=== PATIENT | female | born 1950 | race Caucasian/White ===

== ENCOUNTER 2017-09-03 17:15 | Inpatient (IN) | payer SELFPAY ==
--- NOTE | 2017-09-03 17:36 | ER Document Report ---
ED Medical Screen (RME) - General Chief Complaint: Weakness Stated Complaint: HEADACHE, DIZZY, BLURRED VISION Time Seen by Provider: 09/03/17 17:31 Notes: RME DISCLOSURE I have seen this patient as part of a Rapid Medical Evaluation and, if applicable, placed any initially appropriate orders. The patient will be seen and fully evaluated, including a full history and physical exam, by a provider ( in Main ED or Fast Track) when a room becomes available. 67-year-old female here with complaints of left-sided weakness that started 2 weeks ago including her arm and her leg. She states she was unable to move the left side however this and it up resolving somewhat on its own. She still has some residual left-sided weakness but is here today because over the past few days, she has had some slurred speech headache dizziness and vision loss. She was sent here by her PCP Dr. Quevedo for further evaluation of stroke. She states that when she covers her left eye, the vision in her right eye is absent in the right half of the visual field. When she covers her right eye, she states that her left eye vision is normal. She denies any prior history of officially diagnosed stroke. TRAVEL OUTSIDE OF THE [place] IN LAST 30 DAYS: No - Related Data Allergies/Adverse Reactions: iodine [Iodine] Allergy (Severe, Verified 04/12/14 21:52) prochlorperazine edisylate [From Compazine] Allergy (Severe, Verified 04/12/14 21:52) Past Medical History - Social History Chew tobacco use (# tins/day): No Frequency of alcohol use: None Drug Abuse: None - Past Medical History Cardiac Medical History: Reports: Hx Hypercholesterolemia, Hx Hypertension Pulmonary Medical History: Reports: Hx Bronchitis, Hx COPD, Hx Pneumonia Denies: Hx Tuberculosis Renal/ Medical History: Reports: Hx Ovarian Cysts. Denies: Hx Peritoneal Dialysis Psychiatric Medical History: Reports: Hx Anxiety Past Surgical History: Reports: Hx Appendectomy, Hx Hysterectomy - 1986 [facility], Hx Orthopedic Surgery - neck surgery. Denies: Hx Pacemaker - Immunizations Immunizations up to date: Yes Hx Diphtheria, Pertussis, Tetanus Vaccination: Yes Physical Exam - Vital signs Vitals: Temp Pulse Resp BP Pulse Ox 97.9 F 80 16 152/79 H 97 09/03/17 17:24 09/03/17 17:24 09/03/17 17:24 09/03/17 17:24 09/03/17 17:24 Course - Vital Signs Vital signs: Temp Pulse Resp BP Pulse Ox 97.9 F 80 16 152/79 H 97 09/03/17 17:24 09/03/17 17:24 09/03/17 17:24 09/03/17 17:24 09/03/17 17:24
[2017-09-03 18:10] LABS: ABSOLUTE BASOPHILS # (AUTO) 0.1 10^3/uL (0.0-0.2); ABSOLUTE EOSINOPHILS # (AUTO) 0.2 10^3/uL (0.0-0.6); ABSOLUTE LYMPHOCYTES (AUTO) 2.3 10^3/uL (0.5-4.7); ABSOLUTE MONOCYTES (AUTO) 0.8 10^3/uL (0.1-1.4); BASOPHILS % (AUTO) 1.1 % (0-2); EOSINOPHILS % (AUTO) 2.5 % (0-6); HEMATOCRIT 42.4 % (36.0-47.0); HEMOGLOBIN 14.2 g/dL (12.0-15.5); LYMPHOCYTES % (AUTO) 24.7 % (13-45); MEAN CORPUSCULAR HEMOGLOBIN 30.6 pg (27.0-33.4); MEAN CORPUSCULAR HGB CONC 33.6 g/dL (32.0-36.0); MEAN CORPUSCULAR VOLUME 91 fl (80-97); MONOCYTES % (AUTO) 8.6 % (3-13); PLATELET COUNT 212 10^3/uL (150-450); RED BLOOD COUNT 4.65 10^6/uL (3.72-5.28); RED CELL DISTRIBUTION WIDTH 14.5 % (11.5-14.0); SEGMENTED NEUTROPHILS % (AUTO) 63.1 % (42-78); TOTAL CELLS COUNTED % (AUTO) 100 %; WHITE BLOOD COUNT 9.5 10^3/uL (4.0-10.5)
--- NOTE | 2017-09-03 18:13 | RADIOLOGY REPORT (SQ) ---
EXAM DESCRIPTION: CT HEAD WITHOUT COMPLETED DATE/TIME: 09/03/2017 5:51 pm REASON FOR STUDY: visual field cuts, slurred speech, L sided weakness COMPARISON: 06/07/2015 TECHNIQUE: Axial images acquired through the brain without intravenous contrast. Images reviewed wi th bone, brain and subdural windows. Additional sagittal and coronal reconstructions were generated. Images stored on PACS. All CT scanners at this facility use dose modulation, iterative reconstruction, and/or weight based d osing when appropriate to reduce radiation dose to as low as reasonably achievable (ALARA). [facility]: Dose Right [facility]: CareDose [facility]: Dose Right [facility]: Teradose 4D [facility]: Smart VytronUS RADIATION DOSE: CT Rad equipment meets quality standard of care and radiation dose reduction techniq ues were employed. CTDIvol: 53.2 mGy. DLP: 1017 mGy-cm. mGy. LIMITATIONS: None. FINDINGS: VENTRICLES: Normal size and contour. CEREBRUM: No masses. No hemorrhage. No midline shift. No evidence for acute infarction. Areas of l ow density in the white matter most likely chronic small vessel ischemic changes. CEREBELLUM: No masses. No hemorrhage. No alteration of density. No evidence for acute infarction. EXTRAAXIAL SPACES: No fluid collections. No masses. ORBITS AND GLOBE: No intra- or extraconal masses. Normal contour of globe without masses. CALVARIUM: No fracture. PARANASAL SINUSES: No fluid or mucosal thickening. SOFT TISSUES: No mass or hematoma. OTHER: No other significant finding. IMPRESSION: CHRONIC MICROVASCULAR ISCHEMIA. NO ACUTE IMAGING FINDINGS IN THE BRAIN. EVIDENCE OF ACUTE STROKE: NO. COMMENT: Quality ID # [id number]: Final reports with documentation of one or more dose reduction techniques (e.g., Automated exposure control, adjustment of the mA and/or kV according to patient size, use of iterative reconstruction technique) TECHNICAL DOCUMENTATION: JOB ID: [id number] [employer]- All Rights Reserved Reading location - IP/workstation name: [email or web address]
--- NOTE | 2017-09-03 18:15 | RADIOLOGY REPORT (SQ) ---
EXAM DESCRIPTION: CHEST SINGLE VIEW COMPLETED DATE/TIME: 09/03/2017 5:43 pm REASON FOR STUDY: stroke COMPARISON: 06/07/2015 EXAM PARAMETERS: NUMBER OF VIEWS: One view. TECHNIQUE: Single frontal radiographic view of the chest acquired. RADIATION DOSE: NA LIMITATIONS: None. FINDINGS: LUNGS AND PLEURA: The lungs are hyperexpanded with flattening of the diaphragms. There is no infiltrate or effusion. There is no mass. MEDIASTINUM AND HILAR STRUCTURES: No masses. Contour normal. HEART AND VASCULAR STRUCTURES: Heart normal in size. Normal vasculature. BONES: No acute findings. HARDWARE: None in the chest. OTHER: No other significant finding. IMPRESSION: Chronic lung changes with no acute cardiopulmonary disease. TECHNICAL DOCUMENTATION: JOB ID: [id number] [employer]- All Rights Reserved Reading location - IP/workstation name: [email or web address]
[2017-09-03 18:18] LABS: INTERNATIONAL RATION (INR) 0.93; PROTHROMBIN TIME 12.9 SEC (11.4-15.4)
[2017-09-03 18:19] LABS: PARTIAL THROMBOPLASTIN TIME 36.6 SEC (23.5-35.8)
[2017-09-03 18:27] LABS: ANION GAP 11 (5-19); BLOOD UREA NITROGEN 27 mg/dL (7-20); CARBON DIOXIDE 26 mmol/L (22-30); CHLORIDE 106 mmol/L (98-107); GLUCOSE 96 mg/dL (75-110); POTASSIUM 4.7 mmol/L (3.6-5.0); SODIUM 142.9 mmol/L (137-145)
--- NOTE | 2017-09-03 18:35 | ER Document Report ---
ED General - General Chief Complaint: Weakness Stated Complaint: HEADACHE, DIZZY, BLURRED VISION Time Seen by Provider: 09/03/17 17:31 Notes: 67-year-old female. History of hypertension. History of CVA affecting the left side. Over the last several days to last several weeks patient has been having blurred vision with blind spot in the right eye, headache, hypertension and left-sided weakness and pain. Decided to finally come in and get it checked out because a friend thought she was having slurred speech. Patient states that she knows her blood pressure is high and her headache has been hurting worse recently. Review of stroke in the past left her with left-sided weakness of the upper lower extremity TRAVEL OUTSIDE OF THE [place] IN LAST 30 DAYS: No - Related Data Allergies/Adverse Reactions: iodine [Iodine] Allergy (Severe, Verified 04/12/14 21:52) prochlorperazine edisylate [From Compazine] Allergy (Severe, Verified 04/12/14 21:52) Past Medical History - General Information source: Patient - Social History Smoking Status: Never Smoker Chew tobacco use (# tins/day): No Frequency of alcohol use: None Drug Abuse: None Lives with: Alone Family History: Reviewed & Not Pertinent Patient has suicidal ideation: No Patient has homicidal ideation: No - Past Medical History Cardiac Medical History: Reports: Hx Hypercholesterolemia, Hx Hypertension Pulmonary Medical History: Reports: Hx Bronchitis, Hx COPD, Hx Pneumonia Denies: Hx Tuberculosis Renal/ Medical History: Reports: Hx Ovarian Cysts. Denies: Hx Peritoneal Dialysis Psychiatric Medical History: Reports: Hx Anxiety Past Surgical History: Reports: Hx Appendectomy, Hx Hysterectomy - 1986 [facility], Hx Orthopedic Surgery - neck surgery. Denies: Hx Pacemaker - Immunizations Immunizations up to date: Yes Hx Diphtheria, Pertussis, Tetanus Vaccination: Yes Review of Systems - Review of Systems Constitutional: No symptoms reported EENT: No symptoms reported, Blurred vision. denies: Ear pain, Difficulty swallowing Cardiovascular: No symptoms reported Respiratory: No symptoms reported Gastrointestinal: No symptoms reported Genitourinary: No symptoms reported Female Genitourinary: No symptoms reported Musculoskeletal: No symptoms reported, Muscle pain Skin: No symptoms reported Hematologic/Lymphatic: No symptoms reported Neurological/Psychological: See HPI, Other - Blurred vision, blind spot right eye, Physical Exam - Vital signs Vitals: Temp Pulse Resp BP Pulse Ox 97.9 F 80 16 152/79 H 97 09/03/17 17:24 09/03/17 17:24 09/03/17 17:24 09/03/17 17:24 09/03/17 17:24 Interpretation: Normal - General General appearance: Appears well, Alert - HEENT Head: Normocephalic, Atraumatic Eyes: Normal Pupils: PERRL - Respiratory Respiratory status: No respiratory distress Chest status: Nontender Breath sounds: Normal Chest palpation: Normal - Cardiovascular Rhythm: Regular Heart sounds: Normal auscultation Murmur: No - Abdominal Inspection: Normal Distension: No distension Bowel sounds: Normal Tenderness: Nontender Organomegaly: No organomegaly - Back Back: Normal, Nontender - Extremities General upper extremity: Normal inspection, Nontender, Normal color, Normal ROM , Normal temperature General lower extremity: Normal inspection, Nontender, Normal color, Normal ROM , Normal temperature, Normal weight bearing. No: Fern's sign - Neurological Neuro grossly intact: Yes Cognition: Normal Orientation: AAOx4 Holland Coma Scale Eye Opening: Spontaneous Olvin Coma Scale Verbal: Oriented Holland Coma Scale Motor: Obeys Commands Olvin Coma Scale Total: 15 Speech: Normal Motor strength normal: RUE, RLE. No: LUE, LLE Sensory: Normal Notes: Mild decreased strength of the left upper and left lower extremity. - Psychological Associated symptoms: Normal affect, Normal mood - Skin Skin Temperature: Warm Skin Moisture: Dry Skin Color: Normal Course - Re-evaluation Re-evalutation: 09/03/17 18:36 CT head and labs unremarkable. Patient with hypertension. Will order MRI but more likely this is all old findings. Ultrasound of lower extremities well to look for DVT based on her previous history of DVT several years ago. 09/03/17 18:46 CT head unremarkable. Chest x-ray unremarkable. Given her blood pressure medication at this time. Have ordered an MRI and ultrasound of the lower extremity to rule out DVT and worsening symptoms however patient needs to be admitted for TIA and further evaluation especially in the setting of this uncontrolled hypertension. Patient is taking care of by Dr. Quevedo. Dr. Phelan is covering for Dr. Quevedo this week and. Consulted Dr. Phelan who will admit to obs telemetry at this time. 09/03/17 18:47 09/03/17 18:47 Laboratory 09/03/17 09/03/17 09/03/17 18:00 18:00 18:00 WBC 9.5 RBC 4.65 Hgb 14.2 Hct 42.4 MCV 91 MCH 30.6 MCHC 33.6 RDW 14.5 H Plt Count 212 Seg Neutrophils % 63.1 Lymphocytes % 24.7 Monocytes % 8.6 Eosinophils % 2.5 Basophils % 1.1 Absolute Neutrophils 6.0 Absolute Lymphocytes 2.3 Absolute Monocytes 0.8 Absolute Eosinophils 0.2 Absolute Basophils 0.1 PT INR APTT Sodium 142.9 Potassium 4.7 Chloride 106 Carbon Dioxide 26 Anion Gap 11 BUN 27 H Creatinine 1.29 H Est GFR ( Amer) 50 L Est GFR (Non-Af Amer) 41 L Glucose 96 Calcium 10.0 Troponin I 0.013 09/03/17 18:00 WBC RBC Hgb Hct MCV MCH MCHC RDW Plt Count Seg Neutrophils % Lymphocytes % Monocytes % Eosinophils % Basophils % Absolute Neutrophils Absolute Lymphocytes Absolute Monocytes Absolute Eosinophils Absolute Basophils PT 12.9 INR 0.93 APTT 36.6 H Sodium Potassium Chloride Carbon Dioxide Anion Gap BUN Creatinine Est GFR ( Amer) Est GFR (Non-Af Amer) Glucose Calcium Troponin I Head CT 09/03/17 17:32 IMPRESSION: CHRONIC MICROVASCULAR ISCHEMIA. NO ACUTE IMAGING FINDINGS IN THE BRAIN. EVIDENCE OF ACUTE STROKE: NO. Chest X-Ray 09/03/17 17:34 IMPRESSION: Chronic lung changes with no acute cardiopulmonary disease. - Vital Signs Vital signs: Temp Pulse Resp BP Pulse Ox 97.9 F 80 16 152/79 H 97 09/03/17 17:24 09/03/17 17:50 09/03/17 17:50 09/03/17 17:50 09/03/17 17:50 - Laboratory Result Diagrams: 09/03/17 18:00 09/03/17 18:00 Laboratory results interpreted by me: 09/03/17 09/03/17 09/03/17 18:00 18:00 18:00 RDW 14.5 H APTT 36.6 H BUN 27 H Creatinine 1.29 H Est GFR ( Amer) 50 L Est GFR (Non-Af Amer) 41 L - EKG Interpretation by Me Additional EKG results interpreted by me: 09/03/17 18:37 EKG with wandering pacemaker and supraventricular bigeminy LVH with no evidence of ST segment elevation or depression. No significant T-wave abnormalities. Discharge - Discharge Clinical Impression: Hypertensive urgency TIA (transient ischemic attack) Qualifiers: Transient cerebral ischemia type: amaurosis fugax Qualified Code(s): G45.3 - Amaurosis fugax Condition: Good Disposition: ADMITTED OBSERVATION Admitting Provider: [facility] Admitted: Telemetry
[2017-09-03] MEDS ORDERED: LISINOPRIL 10 MG TABLET PO ONE (18:41)
[2017-09-03] MEDS ORDERED: AMLODIPINE BESYLATE 10 MG TABLET PO ONE (18:42)
[2017-09-03] MEDS ORDERED: OXYCODONE-ACETAMINOPHEN 5-325 MG TABLET PO ONE (19:12)
[2017-09-03] MEDS ORDERED: FAMOTIDINE 20 MG TABLET PO ONE (19:13)
[2017-09-03] MEDS ORDERED: ASPIRIN 325 MG TABLET PO ONE (19:13)
[2017-09-03 19:51] LABS: APPEARANCE,URINE CLEAR; BILIRUBIN,URINE NEGATIVE (NEGATIVE); COLOR,URINE YELLOW; GLUCOSE, URINE NEGATIVE (NEGATIVE); KETONES,URINE NEGATIVE (NEGATIVE); LEUKOCYTE ESTERASE,URINE NEGATIVE (NEGATIVE); NITRITE,URINE NEGATIVE (NEGATIVE); PROTEIN,URINE 30 mg/dL (NEGATIVE); URINE SPECIFIC GRAVITY 1.015; UROBILINOGEN,URINE NEGATIVE mg/dL (<2.0)
--- NOTE | 2017-09-03 21:04 | EKG REPORT ---
SEVERITY:- ABNORMAL ECG - SINUS RHYTHM WITH ATRIAL BIGEMINI SUPRAVENTRICULAR BIGEMINY LVH WITH SECONDARY REPOLARIZATION ABNORMALITY BORDERLINE PROLONGED QT INTERVAL : Confirmed by: Iris Epstein 03-Sep-2017 21:04:08
[2017-09-03] MEDS ORDERED: CLONIDINE HCL 0.1 MG TABLET PO ONE (21:38)
--- NOTE | 2017-09-03 22:05 | RADIOLOGY REPORT (SQ) ---
EXAM DESCRIPTION: MRI HEAD WITHOUT COMPLETED DATE/TIME: 09/03/2017 8:44 pm REASON FOR STUDY: headache and vision loss COMPARISON: Earlier head CT TECHNIQUE: Multiplanar imaging includes non-contrasted T1, T2, FLAIR, and Diffusion with ADC map seq uences. Images stored on PACS. LIMITATIONS: None. FINDINGS: ANATOMY: No anomalies. Normal vascular flow voids. Pituitary fossa normal. CSF SPACES: Normal in size and contour. No hemorrhage. CEREBRUM: Scattered high-signal intensity lesions scattered throughout the white matter on FLAIR imag ing with distribution suggesting chronic micro-vascular ischemic change. Sulci and gyri normal in si ze and contour. No evidence of hemorrhage, mass or extraaxial fluid collection. POSTERIOR FOSSA: No signal alteration. No hemorrhage. No edema, masses or mass effect. Internal emory tory canals, cerebello-pontine angles, mastoids normal. DIFFUSION: Positive for acute or sub-acute infarction with multiple small foci including the central maria [place], both posterior occipital cortices, and the posterior left temporal-occipital junction. ORBITS: No masses. Globes normal. PARANASAL SINUSES: No fluid levels. Mucosa normal. OTHER: No other significant finding. IMPRESSION: Positive for acute or sub-acute infarction with multiple small foci including the centra l maria [place] carmen, both posterior occipital cortices, and the posterior left temporal-occipital junction. EVIDENCE OF ACUTE STROKE: Yes bilateral posterior circulation COMMENT: These results were called to Dr. Ramirez in the emergency room at 2159 hours. Results shanell landry confirmed and read back. TECHNICAL DOCUMENTATION: JOB ID: [id number] [employer]- All Rights Reserved Reading location - IP/workstation name: [email or web address]
[2017-09-03] MEDS ORDERED: HYDRALAZINE HCL 50 MG TABLET PO ONE (23:15)
[2017-09-04] MEDS ORDERED: VALSARTAN 160 MG TABLET PO ONE (00:15)
[2017-09-04 05:30] LABS: ABSOLUTE BASOPHILS # (AUTO) 0.1 10^3/uL (0.0-0.2); ABSOLUTE EOSINOPHILS # (AUTO) 0.2 10^3/uL (0.0-0.6); ABSOLUTE LYMPHOCYTES (AUTO) 2.1 10^3/uL (0.5-4.7); ABSOLUTE MONOCYTES (AUTO) 0.6 10^3/uL (0.1-1.4); ABSOLUTE NEUT (AUTO) 4.8 10^3/uL (1.7-8.2); EOSINOPHILS % (AUTO) 2.4 % (0-6); HEMATOCRIT 38.9 % (36.0-47.0); HEMOGLOBIN 13.2 g/dL (12.0-15.5); LYMPHOCYTES % (AUTO) 27.2 % (13-45); MEAN CORPUSCULAR HEMOGLOBIN 30.6 pg (27.0-33.4); MEAN CORPUSCULAR HGB CONC 33.8 g/dL (32.0-36.0); MEAN CORPUSCULAR VOLUME 90 fl (80-97); PLATELET COUNT 148 10^3/uL (150-450); RED BLOOD COUNT 4.31 10^6/uL (3.72-5.28); RED CELL DISTRIBUTION WIDTH 14.9 % (11.5-14.0); SEGMENTED NEUTROPHILS % (AUTO) 61.4 % (42-78); TOTAL CELLS COUNTED % (AUTO) 100 %; WHITE BLOOD COUNT 7.8 10^3/uL (4.0-10.5)
[2017-09-04] MEDS: LANSOPRAZOLE 30 MG TAB.RAP.DR PO SCH (05:50)
[2017-09-04 05:53] LABS: ANION GAP 9 (5-19); BLOOD UREA NITROGEN 28 mg/dL (7-20); CALCIUM 9.4 mg/dL (8.4-10.2); CARBON DIOXIDE 22 mmol/L (22-30); CHLORIDE 109 mmol/L (98-107); CHOLESTEROL 188.43 mg/dL (0-200); GLUCOSE 109 mg/dL (75-110); SODIUM 140.3 mmol/L (137-145); TRIGLYCERIDES 123 mg/dL (<150)
[2017-09-04] MEDS ORDERED: HYDRALAZINE HCL 50 MG TABLET PO SCH (06:00)
[2017-09-04 06:04] LABS: DIRECT LDL 108 mg/dL (<100)
[2017-09-04 06:11] LABS: POTASSIUM 3.4 mmol/L (3.6-5.0)
[2017-09-04] MEDS ORDERED: (PENDING PHARMACY ID) (Butalbital/Aspirin/Caffeine [Fiorinal 50-325-40 Mg Capsule] 1 CAP) PO PRN (09:56)
[2017-09-04] MEDS: ASPIRIN 81 MG TABLET, ENT COATED PO SCH (10:00)
[2017-09-04] MEDS: ENOXAPARIN SODIUM INJ 40 MG/0.4 ML DISP.SYRIN SUBCUT SCH (10:00)
--- NOTE | 2017-09-04 11:36 | PDOC H&P ---
History of Present Illness Admission Date/PCP: 09/03/17 23:13 Patient complains of: HEADACHE, DIZZY, BLURRED VISION History of Present Illness: PRISCILA MINOR is a 67 year old female patient of Dr Quevedo who presented to the ED with above listed complaints. Very poor historian and further discussion with her pharmacist poor compliance with anti hypertensive medication. she noted worsening symptoms for couple of weeks and friend noted slurred speech that prompted her coming to the ED for further evaluation. Initial assessment did revealed significantly elevated blood pressure. Her initial CT scan of head was unrevealing of acute process but her MRI brain suggested acute or subacute bilateral posterior circulation infarctions. She reported dizziness, vertigo, unsteady gait, blurred vision, blind spot right eye, nausea but no vomiting, and chest discomfort with breathing. She admitted to continue cigarette smoking , about 1/2 stick per day! She denied any fever , chills, abdominal pain, diarrhea, constipation, flank pain, dysuria, or hematuria. She denied alcohol or illicit drug usage. Morbidities include prior stroke with left paresis, Hypercholesterolemia, Hypertension, COPD, and Anxiety. Past Medical History Cardiac Medical History: Reports: Hyperlipidema, Hypertension Pulmonary Medical History: Reports: Bronchitis, Chronic Obstructive Pulmonary Disease (COPD), Pneumonia Denies: Tuberculosis Psychiatric Medical History: Denies: Depression Past Surgical History Past Surgical History: Reports: Appendectomy, Hysterectomy - [address] [facility], Orthopedic Surgery - neck surgery Denies: Pacemaker Social History Lives with: Alone Smoking Status: Current Every Day Smoker Cigarettes Packs Per Day: 1 Number of Years Smokin Last Time Smoked: yesterday Frequency of Alcohol Use: None Hx Recreational Drug Use: No Drugs: None Hx Prescription Drug Abuse: No - Advance Directive Resuscitation Status: Full Code Family History Family History: Reviewed & Not Pertinent Parental Family History Reviewed: Yes Children Family History Reviewed: Yes Sibling(s) Family History Reviewed.: Yes Medication/Allergy Home Medications: Butalbital/Aspirin/Caffeine [Fiorinal 50-325-40 mg Capsule] 1 cap PO DAILYP PRN 09/03/17 Allergies/Adverse Reactions: iodine [Iodine] Allergy (Severe, Verified 04/12/14 21:52) prochlorperazine edisylate [From Compazine] Allergy (Severe, Verified 04/12/14 21:52) Review of Systems Constitutional: PRESENT: headache(s) Eyes: PRESENT: visual disturbances Ears: ABSENT: hearing changes Nose, Mouth, and Throat: PRESENT: headache(s), vertigo Cardiovascular: ABSENT: chest pain, dyspnea on exertion, edema, orthropnea, palpitations Respiratory: ABSENT: cough, hemoptysis Gastrointestinal: PRESENT: nausea. ABSENT: as per HPI, abdominal pain, bloating , coffee ground emesis, constipation, diarrhea, dysphagia, heartburn, hematemesis, hematochezia, melena, vomiting, other Genitourinary: ABSENT: dysuria, hematuria Musculoskeletal: PRESENT: muscle weakness - discomfort and intolerance of pain in left leg due to MEDARDO, weakness in left legleft side related to prior stroke Integumentary: ABSENT: rash, wounds Neurological: PRESENT: abnormal gait - related to prior stroke, abnormal speech , dizziness, vertigo, weakness - related to prior stroke. ABSENT: as per HPI, abnormal movements, confusion, convulsions, focal weakness, frequent falls, lack of coordination, memory loss, numbness, paresthesias, restless legs, syncope, tingling, tremor(s), other Psychiatric: ABSENT: anxiety, depression, homidical ideation, suicidal ideation Endocrine: ABSENT: cold intolerance, heat intolerance, polydipsia, polyuria Hematologic/Lymphatic: PRESENT: as per HPI Allergic/Immunologic: ABSENT: seasonal rhinorrhea Physical Exam Vital Signs: Temp Pulse Resp BP Pulse Ox 97.4 F 55 L 20 136/65 H 99 09/04/17 07:46 09/04/17 07:46 09/04/17 07:46 09/04/17 07:46 09/04/17 07:46 Intake & Output 09/03/17 09/04/17 09/05/17 06:59 06:59 06:59 Intake Total 250 Output Total 0 Balance 250 Weight 46 kg General appearance: PRESENT: no acute distress, well-developed, well-nourished Head exam: PRESENT: atraumatic, normocephalic Eye exam: PRESENT: conjunctiva pink, EOMI, PERRLA. ABSENT: scleral icterus Ear exam: PRESENT: normal external ear exam Mouth exam: PRESENT: moist, tongue midline Teeth exam: PRESENT: edentulous - with upper denture in use Throat exam: ABSENT: post pharyngeal erythema, tonsillar erythema, tonsillar exudate, tonsillogmegaly, other Neck exam: PRESENT: full ROM. ABSENT: carotid bruit, JVD, lymphadenopathy, thyromegaly Respiratory exam: PRESENT: clear to auscultation carmita Cardiovascular exam: PRESENT: RRR. ABSENT: diastolic murmur, rubs, systolic murmur Pulses: PRESENT: normal dorsalis pedis pul, +2 pedal pulses bilateral Vascular exam: PRESENT: normal capillary refill. ABSENT: pallor GI/Abdominal exam: PRESENT: normal bowel sounds, soft. ABSENT: distended, guarding, mass, organolmegaly, rebound, tenderness Rectal exam: PRESENT: deferred Extremities exam: ABSENT: pedal edema Musculoskeletal exam: PRESENT: normal inspection Neurological exam: PRESENT: alert, awake, oriented to person, oriented to place , oriented to time, oriented to situation, abnormal gait - ambulate with straight cane assistance, CN II-XII grossly intact. ABSENT: motor sensory deficit Psychiatric exam: PRESENT: appropriate affect, normal mood. ABSENT: homicidal ideation, suicidal ideation Skin exam: PRESENT: dry, intact, warm, other - seborrhea lesion on back. ABSENT : cyanosis, rash Results Laboratory Results: 09/04/17 04:53 09/04/17 04:53 09/04/17 09/04/17 04:53 04:53 WBC 7.8 RBC 4.31 Hgb 13.2 Hct 38.9 MCV 90 MCH 30.6 MCHC 33.8 RDW 14.9 H Plt Count 148 L Seg Neutrophils % 61.4 Lymphocytes % 27.2 Monocytes % 8.0 Eosinophils % 2.4 Basophils % 1.0 Absolute Neutrophils 4.8 Absolute Lymphocytes 2.1 Absolute Monocytes 0.6 Absolute Eosinophils 0.2 Absolute Basophils 0.1 Sodium 140.3 Potassium 3.4 L D Chloride 109 H Carbon Dioxide 22 Anion Gap 9 BUN 28 H Creatinine 1.14 Est GFR ( Amer) 58 L Est GFR (Non-Af Amer) 48 L Glucose 109 Calcium 9.4 Triglycerides 123 Cholesterol 188.43 LDL Cholesterol Direct 108 H VLDL Cholesterol 25.0 HDL Cholesterol 51 Impressions: Head CT 09/03/17 17:32 IMPRESSION: CHRONIC MICROVASCULAR ISCHEMIA. NO ACUTE IMAGING FINDINGS IN THE BRAIN. EVIDENCE OF ACUTE STROKE: NO. Chest X-Ray 09/03/17 17:34 IMPRESSION: Chronic lung changes with no acute cardiopulmonary disease. Head MRI 09/03/17 18:20 IMPRESSION: Positive for acute or sub-acute infarction with multiple small foci including the central maria [place], both posterior occipital cortices, and the posterior left temporal-occipital junction. EVIDENCE OF ACUTE STROKE: Yes bilateral posterior circulation Assessment & Plan - Diagnosis (1) Acute arterial ischemic stroke, multifocal, posterior circulation Qualifiers: Laterality: unspecified laterality Qualified Code(s): I63.539 - Cerebral infarction due to unspecified occlusion or stenosis of unspecified posterior cerebral artery Is this a current diagnosis for this admission?: Yes Plan: See covering attending physician orders. (2) Malignant hypertensive urgency Is this a current diagnosis for this admission?: Yes Plan: See covering attending physician orders. (3) Tobacco abuse Is this a current diagnosis for this admission?: Yes Plan: See covering attending physician orders. (4) PVD (peripheral vascular disease) with claudication Is this a current diagnosis for this admission?: Yes Plan: See covering attending physician orders. - Time Time Spent: Greater than 70 Minutes Smoking Cessation Education: 3 to 10 minutes Medications reviewed and adjusted accordingly: Yes Anticipated discharge: Home with Homehealth Within: Other - Inpatient Certification Based on my medical assessment, after consideration of the patient's comorbidities, presenting symptoms, or acuity I expect that the services needed warrant INPATIENT care.: Yes I certify that my determination is in accordance with my understanding of Medicare's requirements for reasonable and necessary INPATIENT services [42 CFR 412.3e].: Yes Medical Necessity: Need Close Monitoring Due to Risk of Patient Decompensation, Need For Continuous Telemetry Monitoring, Risk of Complication if Not Cared For in Hospital Post Hospital Care: D/C Composition Teacher Documentation - Plan Summary Plan Summary: See covering attending physician orders.
[2017-09-04] MEDS: HYDRALAZINE HCL 50 MG TABLET PO PRN (14:19)
[2017-09-04] MEDS: BUTALB/ACETAMINOPHEN/CAFFEINE 1 TAB EACH PO PRN (14:19)
[2017-09-04] MEDS: ATORVASTATIN CALCIUM 40 MG TABLET PO SCH (21:54)
[2017-09-04] MEDS: VALSARTAN 160 MG TABLET PO SCH (21:54)
[2017-09-05] MEDS: HYDRALAZINE HCL 50 MG TABLET PO PRN ×2 (01:55→09:18)
[2017-09-05] MEDS: LANSOPRAZOLE 30 MG TAB.RAP.DR PO SCH (07:17)
[2017-09-05] MEDS: ASPIRIN 81 MG TABLET, ENT COATED PO SCH (09:17)
[2017-09-05] MEDS: ENOXAPARIN SODIUM INJ 40 MG/0.4 ML DISP.SYRIN SUBCUT SCH (09:18)
--- NOTE | 2017-09-05 09:24 | PDOC PROGRESS REPORT ---
Subjective Progress Note for:: 09/05/17 Subjective:: She denied any chest pain or difficulty with breathing. No abdominal pain, nausea or vomiting. She expressed concern about headache. Noted that patient has three different PCP and taking two benzodiazepines and [place] from different three pharmacies. no fever or chills. No dizziness or vertigo in supine position. Reason For Visit: TIA Physical Exam Vital Signs: Temp Pulse Resp BP Pulse Ox 98.2 F 63 18 168/70 H 98 09/05/17 07:09 09/05/17 07:12 09/05/17 07:12 09/05/17 07:12 09/05/17 07:12 Intake & Output 09/04/17 09/05/17 09/06/17 06:59 06:59 06:59 Intake Total 250 962 Output Total 0 1100 Balance 250 -138 Weight 46 kg 45.7 kg General appearance: PRESENT: no acute distress, well-developed, well-nourished Head exam: PRESENT: atraumatic, normocephalic Eye exam: PRESENT: conjunctiva pink, EOMI, PERRLA. ABSENT: scleral icterus Respiratory exam: PRESENT: clear to auscultation carmita Cardiovascular exam: PRESENT: RRR. ABSENT: diastolic murmur, rubs, systolic murmur Vascular exam: PRESENT: normal capillary refill. ABSENT: pallor GI/Abdominal exam: PRESENT: normal bowel sounds, soft. ABSENT: distended, guarding, mass, organolmegaly, rebound, tenderness Extremities exam: ABSENT: pedal edema Musculoskeletal exam: PRESENT: normal inspection Neurological exam: PRESENT: alert, awake, oriented to person, oriented to place , oriented to time, oriented to situation, CN II-XII grossly intact. ABSENT: motor sensory deficit Psychiatric exam: PRESENT: appropriate affect, normal mood. ABSENT: homicidal ideation, suicidal ideation Skin exam: PRESENT: dry, intact, warm. ABSENT: cyanosis, rash Results Laboratory Results: 09/04/17 04:53 09/04/17 04:53 Impressions: Head CT 09/03/17 17:32 IMPRESSION: CHRONIC MICROVASCULAR ISCHEMIA. NO ACUTE IMAGING FINDINGS IN THE BRAIN. EVIDENCE OF ACUTE STROKE: NO. Chest X-Ray 09/03/17 17:34 IMPRESSION: Chronic lung changes with no acute cardiopulmonary disease. Head MRI 09/03/17 18:20 IMPRESSION: Positive for acute or sub-acute infarction with multiple small foci including the central maria [place]men, both posterior occipital cortices, and the posterior left temporal-occipital junction. EVIDENCE OF ACUTE STROKE: Yes bilateral posterior circulation Assessment & Plan - Diagnosis (1) Acute arterial ischemic stroke, multifocal, posterior circulation Qualifiers: Laterality: unspecified laterality Qualified Code(s): I63.539 - Cerebral infarction due to unspecified occlusion or stenosis of unspecified posterior cerebral artery Is this a current diagnosis for this admission?: Yes (2) Malignant hypertensive urgency Is this a current diagnosis for this admission?: Yes (3) Tobacco abuse Is this a current diagnosis for this admission?: Yes (4) PVD (peripheral vascular disease) with claudication Is this a current diagnosis for this admission?: Yes - Time Time Spent with patient: 25-34 minutes Medications reviewed and adjusted accordingly: Yes Anticipated discharge: Home with Homehealth Within: Other - Inpatient Certification Based on my medical assessment, after consideration of the patient's comorbidities, presenting symptoms, or acuity I expect that the services needed warrant INPATIENT care.: Yes I certify that my determination is in accordance with my understanding of Medicare's requirements for reasonable and necessary INPATIENT services [42 CFR 412.3e].: Yes Medical Necessity: Need Close Monitoring Due to Risk of Patient Decompensation, Need For Continuous Telemetry Monitoring, Risk of Complication if Not Cared For in Hospital Post Hospital Care: D/C 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 D/C MENDS assessment. Obtain PT evaluation. Obtain CBC with diff, BMP, Mag level.
[2017-09-05 10:59] LABS: ABSOLUTE BASOPHILS # (AUTO) 0.1 10^3/uL (0.0-0.2); ABSOLUTE EOSINOPHILS # (AUTO) 0.1 10^3/uL (0.0-0.6); ABSOLUTE LYMPHOCYTES (AUTO) 1.3 10^3/uL (0.5-4.7); ABSOLUTE MONOCYTES (AUTO) 0.5 10^3/uL (0.1-1.4); ABSOLUTE NEUT (AUTO) 6.1 10^3/uL (1.7-8.2); BASOPHILS % (AUTO) 0.6 % (0-2); EOSINOPHILS % (AUTO) 1.2 % (0-6); HEMATOCRIT 42.9 % (36.0-47.0); HEMOGLOBIN 14.1 g/dL (12.0-15.5); LYMPHOCYTES % (AUTO) 16.2 % (13-45); MEAN CORPUSCULAR HEMOGLOBIN 29.5 pg (27.0-33.4); MEAN CORPUSCULAR HGB CONC 32.9 g/dL (32.0-36.0); MEAN CORPUSCULAR VOLUME 90 fl (80-97); MONOCYTES % (AUTO) 6.2 % (3-13); PLATELET COUNT 206 10^3/uL (150-450); RED BLOOD COUNT 4.78 10^6/uL (3.72-5.28); RED CELL DISTRIBUTION WIDTH 14.6 % (11.5-14.0); SEGMENTED NEUTROPHILS % (AUTO) 75.8 % (42-78); TOTAL CELLS COUNTED % (AUTO) 100 %; WHITE BLOOD COUNT 8.1 10^3/uL (4.0-10.5)
[2017-09-05 11:20] LABS: ANION GAP 12 (5-19); BLOOD UREA NITROGEN 27 mg/dL (7-20); CALCIUM 9.5 mg/dL (8.4-10.2); CARBON DIOXIDE 20 mmol/L (22-30); CHLORIDE 111 mmol/L (98-107); GLUCOSE 123 mg/dL (75-110); POTASSIUM 3.5 mmol/L (3.6-5.0)
[2017-09-05] MEDS ORDERED: CLONIDINE HCL 0.1 MG TABLET ONE (12:53)
[2017-09-05] MEDS: BUTALB/ACETAMINOPHEN/CAFFEINE 1 TAB EACH PO PRN (12:55)
[2017-09-05 13:35] LABS: URINE AMPHETAMINES SCREEN NEGATIVE; URINE BENZODIAZEPINES SCREEN NEGATIVE; URINE COCAINE SCREEN NEGATIVE; URINE MARIJUANA (THC) SCREEN NEGATIVE; URINE METHADONE SCREEN NEGATIVE; URINE PHENCYCLIDINE SCREEN NEGATIVE
[2017-09-05 13:39] LABS: URINE BARBITURATES SCREEN UNCONFIRMED POSITIVE
[2017-09-05] MEDS ORDERED: CLONIDINE HCL 0.2 MG TABLET PO ONE (14:00)
[2017-09-05] MEDS: POTASSIUM CHLORIDE 10 MEQ TABLET.SA PO SCH ×2 (16:58→21:17)
[2017-09-05] MEDS: VALSARTAN 160 MG TABLET PO SCH (21:18)
[2017-09-05] MEDS: CLONIDINE HCL 0.2 MG TABLET PO SCH (21:18)
[2017-09-05] MEDS: ATORVASTATIN CALCIUM 40 MG TABLET PO SCH (21:18)
[2017-09-06] MEDS: BUTALB/ACETAMINOPHEN/CAFFEINE 1 TAB EACH PO PRN (01:11)
[2017-09-06] MEDS: LANSOPRAZOLE 30 MG TAB.RAP.DR PO SCH (06:29)
[2017-09-06] MEDS: ASPIRIN 81 MG TABLET, ENT COATED PO SCH (10:58)
[2017-09-06] MEDS: CLOPIDOGREL BISULFATE 75 MG TABLET PO SCH (10:58)
[2017-09-06] MEDS: AMLODIPINE BESYLATE 2.5 MG TABLET PO SCH ×2 (10:58→21:56)
[2017-09-06] MEDS: CLONIDINE HCL 0.2 MG TABLET PO SCH ×2 (10:58→21:56)
[2017-09-06] MEDS: ENOXAPARIN SODIUM INJ 40 MG/0.4 ML DISP.SYRIN SUBCUT SCH (10:59)
--- NOTE | 2017-09-06 11:54 | RADIOLOGY REPORT (SQ) ---
EXAM DESCRIPTION: CAROTID DOPPLER COMPLETED DATE/TIME: 09/06/2017 11:27 am REASON FOR STUDY: TIA COMPARISON: Brain 09/03/2017 CT brain 09/03/2017 TECHNIQUE: Grayscale ultrasound, Doppler velocity and spectra, and color Doppler images acquired of the extra-cranial carotid and vertebral arteries. Images stored on PACS. LIMITATIONS: None. FINDINGS: RIGHT CAROTID CCA Velocities: Within normal limits. Diffuse intimal thickening. ICA Velocities Peak systolic 0.73 m/s. End diastolic 0.19 m/s. Proximal ICA/CCA peak systolic ratio 1.7. Spectra normal. Mixed calcific and noncalcific plaque at the proximal left ICA. LEFT CAROTID CCA Velocities: Within normal limits. Diffuse intimal thickening. ICA Velocities Peak systolic 1.3 m/s. End diastolic 0.25 m/s. Proximal ICA/CCA peak systolic ratio 1.2. Spectra normal. By velocity criteria, 50 to 69% narrowing is present in the left proximal internal c arotid artery. Mixed calcific and noncalcific plaque at the left proximal ICA. VERTEBRAL ARTERIES: Antegrade flow. Normal waveforms. SUBCLAVIAN ARTERIES: Not evaluated OTHER: No other significant finding. IMPRESSION: No flow significant stenosis at the carotid bifurcations. Less than 50% diameter narrowing proximal right ICA. 50 to 69% narrowing proximal left ICA. COMMENT: Quality ID #[id number]: Velocity criteria are extrapolated from the diameter data as defined by t he Society of Radiologists in Ultrasound Consensus Conference. Radiology 2003: 229; 340-346. TECHNICAL DOCUMENTATION: JOB ID: [id number] [employer]- All Rights Reserved Reading location - IP/workstation name: [facility]
[2017-09-06] MEDS: ACETAMINOPHEN 325 MG TABLET PO PRN ×2 (12:12→21:56)
--- NOTE | 2017-09-06 12:52 | PDOC PROGRESS REPORT ---
Subjective Progress Note for:: 09/06/17 Subjective:: Patient was admitted on the weekend due to the acute left-sided strokes and the patient is currently doing much better Patient's visual site is getting improving Patient's denied any dizziness Patient's denied any weakness Patient is a very noncompliance patients was referred to neurology in the past due to the stroke in the past and patient also seen by the vascular surgery at [place] for carotid disease Patient also getting the pain medication control symptoms from different doctors and very extensive discussions with the patient's today myself with the nursing staff about this DrDori stopping in the controlled substance abuse Reason For Visit: TIA Physical Exam Vital Signs: Temp Pulse Resp BP Pulse Ox 97.2 F 58 L 16 139/66 H 99 09/06/17 07:00 09/06/17 07:00 09/06/17 07:00 09/06/17 07:00 09/06/17 07:00 Intake & Output 09/05/17 09/06/17 09/07/17 06:59 06:59 06:59 Intake Total 962 856 Output Total 1100 1150 Balance -138 -294 Weight 45.7 kg 45.5 kg General appearance: PRESENT: no acute distress, well-developed, well-nourished Head exam: PRESENT: atraumatic, normocephalic Eye exam: PRESENT: conjunctiva pink, EOMI, PERRLA. ABSENT: scleral icterus Ear exam: PRESENT: normal external ear exam Mouth exam: PRESENT: moist, tongue midline Neck exam: PRESENT: full ROM. ABSENT: carotid bruit, JVD, lymphadenopathy, thyromegaly Respiratory exam: PRESENT: clear to auscultation carmita Cardiovascular exam: PRESENT: RRR. ABSENT: diastolic murmur, rubs, systolic murmur Pulses: PRESENT: normal dorsalis pedis pul, +2 pedal pulses bilateral Vascular exam: PRESENT: normal capillary refill GI/Abdominal exam: PRESENT: normal bowel sounds, soft. ABSENT: distended, guarding, mass, organolmegaly, rebound, tenderness Rectal exam: PRESENT: deferred Extremities exam: ABSENT: pedal edema Musculoskeletal exam: PRESENT: ambulatory Neurological exam: PRESENT: alert, awake, oriented to person, oriented to place , oriented to time, oriented to situation, CN II-XII grossly intact. ABSENT: motor sensory deficit Psychiatric exam: PRESENT: appropriate affect, normal mood. ABSENT: homicidal ideation, suicidal ideation Skin exam: PRESENT: dry, intact, warm. ABSENT: cyanosis, rash Results Laboratory Results: 09/05/17 10:45 09/05/17 10:45 Impressions: Head CT 09/03/17 17:32 IMPRESSION: CHRONIC MICROVASCULAR ISCHEMIA. NO ACUTE IMAGING FINDINGS IN THE BRAIN. EVIDENCE OF ACUTE STROKE: NO. Chest X-Ray 09/03/17 17:34 IMPRESSION: Chronic lung changes with no acute cardiopulmonary disease. Head MRI 09/03/17 18:20 IMPRESSION: Positive for acute or sub-acute infarction with multiple small foci including the central maria [place]men, both posterior occipital cortices, and the posterior left temporal-occipital junction. EVIDENCE OF ACUTE STROKE: Yes bilateral posterior circulation Carotid Doppler Study 09/06/17 00:00 IMPRESSION: No flow significant stenosis at the carotid bifurcations. Less than 50% diameter narrowing proximal right ICA. 50 to 69% narrowing proximal left ICA. Assessment & Plan - Diagnosis (1) Acute arterial ischemic stroke, multifocal, posterior circulation Qualifiers: Laterality: unspecified laterality Qualified Code(s): I63.539 - Cerebral infarction due to unspecified occlusion or stenosis of unspecified posterior cerebral artery Is this a current diagnosis for this admission?: Yes Plan: Add the Plavix with the 81 mg aspirin patient used to take the Plavix at homeBut very noncompliance and not taking regularly and also increase the statin (2) Carotid stenosis Qualifiers: Laterality: bilateral Qualified Code(s): I65.23 - Occlusion and stenosis of bilateral carotid arteries Is this a current diagnosis for this admission?: Yes Plan: Will increase to maximize dose of the medication and his patient's is to make another appointment to see the surgery will make arrangement for further evaluations (3) Dyslipidemia Is this a current diagnosis for this admission?: Yes Plan: Increase the statin (4) HTN (hypertension) Qualifiers: Hypertension type: essential hypertension Qualified Code(s): I10 - Essential (primary) hypertension Is this a current diagnosis for this admission?: Yes Plan: We added the Norvasc 2.5 mg p.o. twice a day (5) PVD (peripheral vascular disease) with claudication Is this a current diagnosis for this admission?: Yes Plan: Patient seen by vascular surgery at [facility] and patient still continues to smoke (6) Tobacco abuse Is this a current diagnosis for this admission?: Yes Plan: Discussed with the patient about smoking counseling (7) Substance abuse Is this a current diagnosis for this admission?: Yes Plan: Very extensive discussed with the About doctror shoping And using the controlled substance The patient about the patient will continues behavior like that patient's renal went able to see her - Time Time Spent with patient: 15-24 minutes Medications reviewed and adjusted accordingly: Yes Anticipated discharge: Other Within: Other - Inpatient Certification Medical Necessity: Need Close Monitoring Due to Risk of Patient Decompensation 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
--- NOTE | 2017-09-06 16:22 | XCELERA REPORT ---
[address] [address] Lower Extremity Venous Evaluation Name: PRISCILA MINOR Age: 67 yrs Gender: Female : 1950 Patient Status: Inpatient Patient Location: [address] [place], [place] [address] Study Date: 09/06/2017 09:09 AM Procedure: Color flow and duplex imaging of the veins of the left lower extremity as well as the right Common Femoral vein. Reason For Study: pain left leg / Hx clots Ordering Physician: ANTONIO SERRANO Performed By: Fanta Cadet Right Sided Venous Evaluation The right common femoral vein is fully compressible. Spontaneous and phasic flow is present in the right common femoral vein. Left Sided Venous Evaluation Normal vessel filling wall to wall, compression and augmentation as well as Colour flow down to the infrageniculate veins. Interpretation Summary No duplex evidence of DVT or obstruction in the left lower extremity nor in the right Common Femoral vein. : ANTONIO SERRANO [place]
--- NOTE | 2017-09-06 16:28 | XCELERA REPORT ---
[address] [address] Lower Extremity Arterial Evaluation Name: PRISCILA MINOR Age: 67 yrs Gender: Female : 1950 Patient Status: Inpatient Patient Location: [address] [place] [address] Study Date: 09/06/2017 09:20 AM Procedure: A color flow and duplex scan of the lower extremity arteries was performed bilaterally with velocity and waveform anaylsis. Ankle brachial indicies performed. Reason For Study: Claudication in lower extremities, stroke, HTN Ordering Physician: WALTER BOUDREAUX Performed By: Fanta Cadet Measurements and Calculations Right Left LIFE INSURANCE SALESPERSON PSV 139.4 183.0 cm/sec Prox PFA PSV 91.1 101.5 cm/sec Prox SFA PSV 47.7 43.2 cm/sec Mid SFA PSV 58.5 72.2 cm/sec Dist SFA PSV 32.2 54.9 cm/sec Prox Pop A PSV 28.2 22.8 cm/sec Dist ESTHELA PSV 13.2 14.7 cm/sec Dist TRIPLE DRUM OPERATOR PSV 11.8 11.3 cm/sec Dirk Pedis PSV 12.9 19.4 cm/sec Right Side Arterial Evaluation Normal velocity and triphasic waveforms noted in the Common Femoral artery. Biphasic in the deep Femoral artery and monophasic otherwise, to the infrageniculate vessels. 50-99 % stenosis at the Femoral artery. Ankle Brachial index is 0.6. Left Side Arterial Evaluation Normal velocity and triphasic waveforms noted in the Common Femoral artery. Monophasic , to the infrageniculate vessels. 50-99 % stenosis at the Femoral artery. Ankle Brachial index is 0.6. Interpretation Summary Severe hemodynamically significant lesions in the bilateral lower extremities, on duplex imaging, at rest. : WALTER BOUDREAUX > Tor Coronado
[2017-09-06] MEDS ORDERED: POTASSIUM CHLORIDE 10 MEQ TABLET.SA PO ONE (16:45)
--- NOTE | 2017-09-06 18:44 | XCELERA REPORT ---
[address] [address] Transthoracic Echocardiogram Report Name: PRISCILA MINOR Age: 67 yrs Gender: Female : 1950 Patient Status: Inpatient Patient Location: [address] [place] [address] Study Date: 09/06/2017 08:48 AM Height: 62 in Weight: 99 lb BSA: 1.4 m2 Procedure: A complete two-dimensional transthoracic echocardiogram was performed (2D, M-mode, spectral and color flow Doppler). The study was technically difficult with many images being suboptimal in quality. Reason For Study: TIA Ordering Physician: WALTER BOUDREAUX Performed By: Fanta Cadet Interpretation Summary The left ventricular ejection fraction is normal. Doppler measurements suggest pseudonormalized left ventricular relaxation, which is associated with grade II/IV or mild to moderate diastolic dysfunction There is borderline concentric left ventricular hypertrophy. The left ventricle is grossly normal size. Wall motion cannot be accurately commented on, but no definite regional wall motion abnormalities noted. The right ventricular systolic function is normal. The right atrium is normal in size The left atrial size is normal. There is a trace amount of mitral regurgitation There is no mitral valve stenosis. No aortic regurgitation is present. There is no aortic valve stenosis There is no tricuspid stenosis. No tricuspid regurgitation. The aortic root is not well visualized but is probably normal size. The inferior vena cava appeared normal and decreased > 50% with respiration (RAP 5-10 mmHg) There is no pericardial effusion. MMode/2D Measurements & Calculations RVDd: 1.9 cm LVIDd: 4.3 cm FS: 46.6 % Ao root diam: 3.1 cm IVSd: 0.87 cm LVIDs: 2.3 cm EDV(Teich): 82.6 ml LVPWd: 0.91 cmESV(Teich): 17.9 ml Ao root area: 7.8 cm2 EF(Teich): 78.3 % LVOT diam: 2.1 cm LVOT area: 3.6 cm2 Doppler Measurements & Calculations MV E max zhou: MV dec slope: Ao V2 max: LV V1 max P.4 cm/sec 319.0 cm/sec2 160.0 cm/sec 4.4 mmHg MV A max zhou: MV dec time: Ao max PG: LV V1 max: 77.0 cm/sec 0.19 sec 10.2 mmHg 104.9 cm/sec MV E/A: 0.80 RUCHI(V,D): 2.4 cm2 PA V2 max: 88.3 cm/sec PA max P.1 mmHg Left Ventricle The left ventricle is grossly normal size. There is borderline concentric left ventricular hypertrophy. The left ventricular ejection fraction is normal. Doppler measurements suggest pseudonormalized left ventricular relaxation, which is associated with grade II/IV or mild to moderate diastolic dysfunction. Wall motion cannot be accurately commented on, but no definite regional wall motion abnormalities noted. Right Ventricle The right ventricle is grossly normal size. There is normal right ventricular wall thickness. The right ventricular systolic function is normal. Atria The right atrium is normal in size. The left atrial size is normal. Interarterial septum not well visualized and not well dopplered. Cannot comment on ASD/PFO presence. Mitral Valve The mitral valve is grossly normal. There is no mitral valve stenosis. There is a trace amount of mitral regurgitation. Aortic Valve The aortic valve is not well visualized secondary to technical limitations. There is no aortic valve stenosis. No aortic regurgitation is present. Tricuspid Valve The tricuspid valve is not well visualized secondary to technical limitations. There is no tricuspid stenosis. No tricuspid regurgitation. Pulmonic Valve The pulmonic valve is not well visualized. Great Vessels The aortic root is not well visualized but is probably normal size. The inferior vena cava appeared normal and decreased > 50% with respiration (RAP 5-10 mmHg). Effusions There is no pericardial effusion. : WALTRE BOUDREAUX > Iris Epstein
[2017-09-06] MEDS: VALSARTAN 160 MG TABLET PO SCH (21:56)
[2017-09-06] MEDS: ATORVASTATIN CALCIUM 40 MG TABLET PO SCH (21:56)
[2017-09-07] MEDS: BUTALB/ACETAMINOPHEN/CAFFEINE 1 TAB EACH PO PRN (00:39)
[2017-09-07] MEDS: LANSOPRAZOLE 30 MG TAB.RAP.DR PO SCH (06:21)
[2017-09-07 07:12] LABS: ANION GAP 10 (5-19); BLOOD UREA NITROGEN 34 mg/dL (7-20); CALCIUM 9.9 mg/dL (8.4-10.2); CARBON DIOXIDE 20 mmol/L (22-30); CHLORIDE 110 mmol/L (98-107); GLUCOSE 99 mg/dL (75-110); POTASSIUM 5.4 mmol/L (3.6-5.0); SODIUM 139.6 mmol/L (137-145)
[2017-09-07] MEDS: ACETAMINOPHEN 325 MG TABLET PO PRN ×3 (08:09→22:09)
[2017-09-07] MEDS: ENOXAPARIN SODIUM INJ 40 MG/0.4 ML DISP.SYRIN SUBCUT SCH (09:04)
[2017-09-07] MEDS: CLONIDINE HCL 0.2 MG TABLET PO SCH ×2 (09:04→22:09)
[2017-09-07] MEDS: ASPIRIN 81 MG TABLET, ENT COATED PO SCH (09:05)
[2017-09-07] MEDS: CLOPIDOGREL BISULFATE 75 MG TABLET PO SCH (09:05)
[2017-09-07] MEDS: AMLODIPINE BESYLATE 2.5 MG TABLET PO SCH ×2 (09:05→22:08)
--- NOTE | 2017-09-07 12:21 | PDOC PROGRESS REPORT ---
Subjective Progress Note for:: 09/07/17 Subjective:: Patient is feeling much better Patient's denied any dizziness denied any chest pain denied any shortness of the breath Patient's potassium is slightly elevated today Patient's ultrasound negative for DVT but patient with significant disease on the arterial Doppler and patients currently see a vascular surgery at [facility] Patient's echocardiogram review all stable Since carotid Doppler is all review we will make arrangement to see outpatients vascular surgery Reason For Visit: TIA Physical Exam Vital Signs: Temp Pulse Resp BP Pulse Ox 98.1 F 57 L 18 159/65 H 100 09/07/17 07:20 09/07/17 07:20 09/07/17 07:20 09/07/17 07:20 09/07/17 07:20 Intake & Output 09/06/17 09/07/17 09/08/17 06:59 06:59 06:59 Intake Total 856 1174 Output Total 1150 1250 Balance -294 -76 Weight 45.5 kg 45.5 kg General appearance: PRESENT: no acute distress, well-developed, well-nourished Head exam: PRESENT: atraumatic, normocephalic Eye exam: PRESENT: conjunctiva pink, EOMI, PERRLA. ABSENT: scleral icterus Ear exam: PRESENT: normal external ear exam Mouth exam: PRESENT: moist, tongue midline Neck exam: PRESENT: full ROM. ABSENT: carotid bruit, JVD, lymphadenopathy, thyromegaly Respiratory exam: PRESENT: clear to auscultation cramita Cardiovascular exam: PRESENT: RRR. ABSENT: diastolic murmur, rubs, systolic murmur Pulses: PRESENT: normal dorsalis pedis pul, +2 pedal pulses bilateral Vascular exam: PRESENT: normal capillary refill GI/Abdominal exam: PRESENT: normal bowel sounds, soft. ABSENT: distended, guarding, mass, organolmegaly, rebound, tenderness Rectal exam: PRESENT: deferred Extremities exam: ABSENT: pedal edema Musculoskeletal exam: PRESENT: ambulatory Neurological exam: PRESENT: alert, awake, oriented to person, oriented to place , oriented to time, oriented to situation, CN II-XII grossly intact. ABSENT: motor sensory deficit Psychiatric exam: PRESENT: appropriate affect, normal mood. ABSENT: homicidal ideation, suicidal ideation Skin exam: PRESENT: dry, intact, warm. ABSENT: cyanosis, rash Results Laboratory Results: 09/05/17 10:45 09/07/17 06:01 09/07/17 06:01 Sodium 139.6 Potassium 5.4 H Chloride 110 H Carbon Dioxide 20 L Anion Gap 10 BUN 34 H Creatinine 0.94 Est GFR ( Amer) > 60 Est GFR (Non-Af Amer) > 60 Glucose 99 Calcium 9.9 Impressions: Head CT 09/03/17 17:32 IMPRESSION: CHRONIC MICROVASCULAR ISCHEMIA. NO ACUTE IMAGING FINDINGS IN THE BRAIN. EVIDENCE OF ACUTE STROKE: NO. Chest X-Ray 09/03/17 17:34 IMPRESSION: Chronic lung changes with no acute cardiopulmonary disease. Head MRI 09/03/17 18:20 IMPRESSION: Positive for acute or sub-acute infarction with multiple small foci including the central maria [place] carmen, both posterior occipital cortices, and the posterior left temporal-occipital junction. EVIDENCE OF ACUTE STROKE: Yes bilateral posterior circulation Carotid Doppler Study 09/06/17 00:00 IMPRESSION: No flow significant stenosis at the carotid bifurcations. Less than 50% diameter narrowing proximal right ICA. 50 to 69% narrowing proximal left ICA. Assessment & Plan - Diagnosis (1) Acute arterial ischemic stroke, multifocal, posterior circulation Qualifiers: Laterality: unspecified laterality Qualified Code(s): I63.539 - Cerebral infarction due to unspecified occlusion or stenosis of unspecified posterior cerebral artery Is this a current diagnosis for this admission?: Yes Plan: Continues to aspirin and Plavix and statin high-dose (2) Carotid stenosis Qualifiers: Laterality: bilateral Qualified Code(s): I65.23 - Occlusion and stenosis of bilateral carotid arteries Is this a current diagnosis for this admission?: Yes Plan: Patients definitely reevaluated by the vascular surgery because of the symptoms the stroke patients might candidate for the surgical evaluations currently all hemodynamically stable will make arrangement next week to see them and at [facility] (3) Dyslipidemia Is this a current diagnosis for this admission?: Yes Plan: Increase the statin (4) HTN (hypertension) Qualifiers: Hypertension type: essential hypertension Qualified Code(s): I10 - Essential (primary) hypertension Is this a current diagnosis for this admission?: Yes Plan: Increase in Norvasc 5 mg p.o. twice a day (5) PVD (peripheral vascular disease) with claudication Is this a current diagnosis for this admission?: Yes Plan: Follow-up outpatients vascular surgery (6) Tobacco abuse Is this a current diagnosis for this admission?: Yes Plan: Discussed with the patient about smoking counseling (7) Substance abuse Is this a current diagnosis for this admission?: Yes Plan: Very extensive discussed with the About doctror shoping And using the controlled substance The patient about the patient will continues behavior like that patient's renal went able to see her - Time Time Spent with patient: 15-24 minutes Medications reviewed and adjusted accordingly: Yes Anticipated discharge: Home Within: within 24 hours - Inpatient Certification Medical Necessity: Need Close Monitoring Due to Risk of Patient Decompensation 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
[2017-09-07] MEDS: VALSARTAN 160 MG TABLET PO SCH (22:07)
[2017-09-07] MEDS: ATORVASTATIN CALCIUM 40 MG TABLET PO SCH (22:08)
[2017-09-08] MEDS: BUTALB/ACETAMINOPHEN/CAFFEINE 1 TAB EACH PO PRN (00:42)
[2017-09-08] MEDS: LANSOPRAZOLE 30 MG TAB.RAP.DR PO SCH (05:18)
[2017-09-08 07:46] LABS: ANION GAP 13 (5-19); BLOOD UREA NITROGEN 36 mg/dL (7-20); CALCIUM 9.8 mg/dL (8.4-10.2); CARBON DIOXIDE 19 mmol/L (22-30); CHLORIDE 109 mmol/L (98-107); GLUCOSE 109 mg/dL (75-110); POTASSIUM 4.4 mmol/L (3.6-5.0); SODIUM 141.4 mmol/L (137-145)
[2017-09-08 08:27] VITALS: BP 130/70
--- NOTE | 2017-09-08 08:42 | PDOC DISCHARGE SUMMARY ---
General - Admit/Disc Date/PCP Admission Date/Primary Care Provider: 09/03/17 23:13 Discharge Date: 09/08/17 - Discharge Diagnosis (1) Acute arterial ischemic stroke, multifocal, posterior circulation Is this a current diagnosis for this admission?: Yes Summary: Continues to aspirin Plavix and high-dose statinDiscussed with the patient about smoking counseling (2) Carotid stenosis Is this a current diagnosis for this admission?: Yes Summary: Patient of appointment to see a vascular surgery at [facility] in 09/22 (3) Dyslipidemia Is this a current diagnosis for this admission?: Yes Summary: Continues to Lipitor (4) HTN (hypertension) Is this a current diagnosis for this admission?: Yes Summary: Check a blood pressures daily keep a blood pressures around 130 and heart rate about 60 range (5) PVD (peripheral vascular disease) with claudication Is this a current diagnosis for this admission?: Yes Summary: Follow with the vascular surgery at [facility] on this month (6) Tobacco abuse Is this a current diagnosis for this admission?: Yes Summary: Discussed with the patient about tobacco counseling (7) Substance abuse Is this a current diagnosis for this admission?: Yes Summary: Very extensive discussed with the patient using the different doctor to get the control substance and the discussed with the patient if the patient's try to do thatWe not going to longer see the patient's and patient understand very well - Additional Information Resuscitation Status: Full Code Discharge Diet: Cardiac Discharge Activity: Activity As Tolerated Prescriptions: Amlodipine Besylate [Norvasc 2.5 mg Tablet] 5 mg PO Q12 #60 tablet Aspirin [Ecotrin 81 mg EC Tablet] 81 mg PO DAILY #30 tabec Atorvastatin Calcium [Lipitor 40 mg Tablet] 40 mg PO QHS #30 tablet Clonidine HCl [Catapres 0.2 mg Tablet] 0.2 mg PO Q12 #60 tablet Clopidogrel Bisulfate [Plavix 75 mg Tablet] 75 mg PO DAILY #30 tablet Valsartan [Diovan 160 mg Tablet] 320 mg PO QHS #30 tablet Home Medications: Amlodipine Besylate [Norvasc 2.5 mg Tablet] 5 mg PO Q12 #60 tablet 09/08/17 Aspirin [Ecotrin 81 mg EC Tablet] 81 mg PO DAILY #30 tabec 09/08/17 Atorvastatin Calcium [Lipitor 40 mg Tablet] 40 mg PO QHS #30 tablet 09/08/17 Clonidine HCl [Catapres 0.2 mg Tablet] 0.2 mg PO Q12 #60 tablet 09/08/17 Clopidogrel Bisulfate [Plavix 75 mg Tablet] 75 mg PO DAILY #30 tablet 09/08/17 Valsartan [Diovan 160 mg Tablet] 320 mg PO QHS #30 tablet 09/08/17 History of Present Illness History of Present Illness: PRISCILA MINOR is a 67 year old female This is a 67-year-old patients very noncompliance see a different doctor and getting the different controller medications came to the ER because of the visual disturbance for the last couple of days initially came to my office and sent to the ER patient's was admitted because of the acute cerebrovascular accident Hospital Course Hospital Course: This is a 67-year-old female admitting in the hospital for the acute cerebrovascular accident and the patient's was put on stroke protocol underwent for the MRI of the head and also underwent for the carotid Doppler Patient's known for the disease for a long time refer to the neurology as outpatient referred to the vascular surgery at [facility] for the carotid disease and peripheral vascular disease patient's neighbor regularly follow Patient's also very noncompliance to take the medicine even patient was given aspirin Plavix and statin but patient is not taking as prescribedSince continues to smoke Patient also see a different doctor to getting the pain medications and also other controlled substance Patients in the hospital remained pretty good premature visual acuities get better patients walk in the hallway without any problems Patient's very express just wants to go home and willing to follow vascular surgery as outpatients Discussed with the patient about the carotid disease and also discuss about the peripheral vascular disease and ultrasound report and discuss about the compliance of the medications Patient understand about that not following the all the subspecialty and not taking the medications due to the severe complications including the very extensive stroke and also multiple cardiac complications and peripheral vascular complications I hope the patient understand very well and patient's discharge today is patient 's expressed to go home and did not want to go and see the vascular surgeon now we already make appointment to see him in giving the date and address to the patient Physical Exam Vital Signs: Temp Pulse Resp BP Pulse Ox 97.6 F 46 L 16 123/48 L 100 09/08/17 07:35 09/08/17 07:35 09/08/17 07:35 09/08/17 07:35 09/08/17 07:35 Intake & Output 09/07/17 09/08/17 09/09/17 06:59 06:59 06:59 Intake Total 1174 1634 Output Total 1250 700 Balance -76 934 Weight 45.5 kg General appearance: PRESENT: no acute distress, well-developed, well-nourished Head exam: PRESENT: atraumatic, normocephalic Eye exam: PRESENT: conjunctiva pink, EOMI, PERRLA. ABSENT: scleral icterus Ear exam: PRESENT: normal external ear exam Mouth exam: PRESENT: moist, tongue midline Neck exam: PRESENT: full ROM. ABSENT: carotid bruit, JVD, lymphadenopathy, thyromegaly Respiratory exam: PRESENT: clear to auscultation carmita Cardiovascular exam: PRESENT: RRR. ABSENT: diastolic murmur, rubs, systolic murmur Pulses: PRESENT: normal dorsalis pedis pul, +2 pedal pulses bilateral Vascular exam: PRESENT: normal capillary refill GI/Abdominal exam: PRESENT: normal bowel sounds, soft. ABSENT: distended, guarding, mass, organolmegaly, rebound, tenderness Rectal exam: PRESENT: deferred Extremities exam: ABSENT: pedal edema Musculoskeletal exam: PRESENT: ambulatory Neurological exam: PRESENT: alert, awake, oriented to person, oriented to place , oriented to time, oriented to situation, reflexes normal, CN II-XII grossly intact, normal gait. ABSENT: motor sensory deficit Psychiatric exam: PRESENT: appropriate affect, normal mood. ABSENT: homicidal ideation, suicidal ideation Skin exam: PRESENT: dry, intact, warm. ABSENT: cyanosis, rash Results Laboratory Results: 09/05/17 10:45 09/08/17 06:05 09/08/17 06:05 Sodium 141.4 Potassium 4.4 Chloride 109 H Carbon Dioxide 19 L Anion Gap 13 BUN 36 H Creatinine 0.96 Est GFR ( Amer) > 60 Est GFR (Non-Af Amer) 58 L Glucose 109 Calcium 9.8 Impressions: Head CT 09/03/17 17:32 IMPRESSION: CHRONIC MICROVASCULAR ISCHEMIA. NO ACUTE IMAGING FINDINGS IN THE BRAIN. EVIDENCE OF ACUTE STROKE: NO. Chest X-Ray 09/03/17 17:34 IMPRESSION: Chronic lung changes with no acute cardiopulmonary disease. Head MRI 09/03/17 18:20 IMPRESSION: Positive for acute or sub-acute infarction with multiple small foci including the central [place], both posterior occipital cortices, and the posterior left temporal-occipital junction. EVIDENCE OF ACUTE STROKE: Yes bilateral posterior circulation Carotid Doppler Study 09/06/17 00:00 IMPRESSION: No flow significant stenosis at the carotid bifurcations. Less than 50% diameter narrowing proximal right ICA. 50 to 69% narrowing proximal left ICA. Qualifiers - * PATEINT BEING DISCHARGED WITH ANY OF THE FOLLOWING DIAGNOSIS?: Stroke VTE patient discharged on overlapping Therapy?: Yes Stroke Pt being discharged on Anti-thrombolytic therapy?: Yes Stroke Pt being discharged on Anti-coagulation therapy?: No Reason(s) for not prescribing Anti-coagulation therapy:: Not indicated Stroke Pt being discharged on Statins?: Yes Plan Time Spent: Greater than 30 Minutes - Continues to current medication as described
[2017-09-08] MEDS: ENOXAPARIN SODIUM INJ 40 MG/0.4 ML DISP.SYRIN SUBCUT SCH (09:40)
[2017-09-08] MEDS: ASPIRIN 81 MG TABLET, ENT COATED PO SCH (09:41)
[2017-09-08] MEDS: AMLODIPINE BESYLATE 2.5 MG TABLET PO SCH (09:41)
[2017-09-08] MEDS: CLOPIDOGREL BISULFATE 75 MG TABLET PO SCH (09:41)
[2017-09-08] MEDS: CLONIDINE HCL 0.2 MG TABLET PO SCH (09:41)
[2017-09-09] MEDS ORDERED: AMLODIPINE BESYLATE 5 MG TABLET PO SCH (10:00)
== END 2017-09-08 09:58 | disposition home or self-care (01) | DRG 65 ==
LOC: ER 17:15 → EH 19:34 → 3W 22:03 → OBSVTOIN 23:13
PROVIDERS: ADMIT Internal Medicine Geriatric Medicine; ATTEND Family Medicine
DX: I63.8 Other cerebral infarction (principal); I69.354 Hemiplegia and hemiparesis following cerebral infarction affecting left non-dominant side; E78.5 Hyperlipidemia, unspecified; I16.0 Hypertensive urgency; I10 Essential (primary) hypertension; F13.10 Sedative, hypnotic or anxiolytic abuse, uncomplicated; I73.9 Peripheral vascular disease, unspecified; I65.29 Occlusion and stenosis of unspecified carotid artery; J44.9 Chronic obstructive pulmonary disease, unspecified; H53.8 Other visual disturbances; F19.10 Other psychoactive substance abuse, uncomplicated; R47.81 Slurred speech; E87.5 Hyperkalemia; F17.210 Nicotine dependence, cigarettes, uncomplicated; T39.016A Underdosing of aspirin, initial encounter; T45.526A Underdosing of antithrombotic drugs, initial encounter; Z91.19 Patient's noncompliance with other medical treatment and regimen; Z91.138 Patient's unintentional underdosing of medication regimen for other reason; Z88.8 Allergy status to other drugs, medicaments and biological substances; Z71.51 Drug abuse counseling and surveillance of drug abuser
CPT/HCPCS: 36415; 70450; 70551; 71045; 80048; 80061; 80307; 81001; 83735; 84484; 85025; 85610; 85730; 93005; 93010; 93306; 93880; 93925; 93971; 99291; J1650; J3490

== ENCOUNTER 2018-02-23 09:35 | Day surgery (SDC) | payer MEDICARE, MEDICAID ==
[~2018-02-23 09:35] MED LIST: KETOROLAC TROMETHAMINE 0.45% 4 DROP/0.4 ML DROPERETTE OD PRN
[2018-02-23] MEDS ORDERED: EPINEPHRINE INJ/PF 1 MG/1 ML AMPULE ONE (09:51)
[2018-02-23] MEDS ORDERED: LIDOCAINE 1% INJ-PF (10 MG/ML) 30 ML SDV ONE (09:51)
[2018-02-23] MEDS ORDERED: TOBRAMYCIN SULFATE/DEXAMETH OPH OINTMENT 3.5 GM ONE (09:51)
[2018-02-23] MEDS ORDERED: CHONDR SU A NA/HYALUR INTRAOC KIT (SURGICARE) ONE (09:51)
[2018-02-23] MEDS: TROPICAMIDE 1% OPH SOLN 3 ML OD PRN ×3 (10:26→10:47)
[2018-02-23] MEDS: CYCLOPENTOLATE 0.2%/PHENYLEPHRINE 1% OPH SOLN 2 ML OD PRN ×3 (10:26→10:47)
[2018-02-23] MEDS: BESIFLOXACIN HCL 0.6% OPH SUSP 5 ML BOTTLE OD PRN ×3 (10:27→11:13)
[2018-02-23] MEDS: TETRACAINE HCL 0.5% OPH SOLN 0.6 ML DROPERETTE OD PRN ×3 (10:28→10:52)
[2018-02-23] MEDS ORDERED: MIDAZOLAM 2 MG/2 ML INJ ONE (10:36)
[2018-02-23] MEDS ORDERED: FENTANYL CITRATE INJ/PF 100 MCG/2 ML AMPUL ONE (10:36)
== END 2018-02-23 12:00 | disposition home or self-care (01) ==
LOC: SC 09:35
PROVIDERS: ATTEND Ophthalmology
DX: H25.11 Age-related nuclear cataract, right eye (principal); E78.00 Pure hypercholesterolemia, unspecified; M19.90 Unspecified osteoarthritis, unspecified site; I10 Essential (primary) hypertension; J45.909 Unspecified asthma, uncomplicated; Z79.899 Other long term (current) drug therapy; Z88.8 Allergy status to other drugs, medicaments and biological substances; Z79.51 Long term (current) use of inhaled steroids; Z79.02 Long term (current) use of antithrombotics/antiplatelets; I69.854 Hemiplegia and hemiparesis following other cerebrovascular disease affecting left non-dominant side
CPT/HCPCS: 66984; V2630; J2250; J3490 ×3; A9270; J0171; J3010; 142

== ENCOUNTER 2018-03-09 09:12 | Day surgery (SDC) | payer MEDICARE, MEDICAID ==
[~2018-03-09 09:12] MED LIST changes: -KETOROLAC TROMETHAMINE 0.45% 4 DROP/0.4 ML DROPERETTE OD PRN; +KETOROLAC TROMETHAMINE 0.45% 4 DROP/0.4 ML DROPERETTE OS PRN
[2018-03-09] MEDS ORDERED: EPINEPHRINE INJ/PF 1 MG/1 ML AMPULE ONE (09:20)
[2018-03-09] MEDS ORDERED: TOBRAMYCIN SULFATE/DEXAMETH OPH OINTMENT 3.5 GM ONE (09:20)
[2018-03-09] MEDS ORDERED: LIDOCAINE 1% INJ-PF (10 MG/ML) 30 ML SDV ONE (09:21)
[2018-03-09] MEDS ORDERED: CHONDR SU A NA/HYALUR INTRAOC KIT (SURGICARE) ONE (09:21)
[2018-03-09] MEDS: TROPICAMIDE 1% OPH SOLN 3 ML OS PRN ×3 (09:40→10:02)
[2018-03-09] MEDS: BESIFLOXACIN HCL 0.6% OPH SUSP 5 ML BOTTLE OS PRN ×3 (09:40→10:28)
[2018-03-09] MEDS: TETRACAINE HCL 0.5% OPH SOLN 0.6 ML DROPERETTE OS PRN ×3 (09:40→10:20)
[2018-03-09] MEDS: CYCLOPENTOLATE 0.2%/PHENYLEPHRINE 1% OPH SOLN 2 ML OS PRN ×3 (09:40→10:02)
[2018-03-09] MEDS ORDERED: FENTANYL CITRATE INJ/PF 100 MCG/2 ML AMPUL ONE (09:51)
[2018-03-09] MEDS ORDERED: ONDANSETRON HCL INJ/PF 4 MG/2 ML SDV ONE (09:51)
[2018-03-09] MEDS ORDERED: MIDAZOLAM 2 MG/2 ML INJ ONE (09:51)
[2018-03-10] MEDS ORDERED: CYCLOPENTOLATE 0.2%/PHENYLEPHRINE 1% OPH SOLN 2 ML OS PRN (05:00)
[2018-03-10] MEDS ORDERED: TROPICAMIDE 1% OPH SOLN 3 ML OS PRN (05:00)
[2018-03-10] MEDS ORDERED: LIDOCAINE 4% INJ/PF (40 MG/ML) 5 ML AMPUL OS PRN (05:00)
[2018-03-10] MEDS ORDERED: BESIFLOXACIN HCL 0.6% OPH SUSP 5 ML BOTTLE OS PRN (05:00)
[2018-03-10] MEDS ORDERED: BUPIVACAINE HCL 0.75% INJ/PF (7.5 MG/1 ML) 10 ML SDV OS PRN (05:00)
[2018-03-10] MEDS ORDERED: KETOROLAC TROMETHAMINE 0.45% 4 DROP/0.4 ML DROPERETTE OS PRN (05:00)
== END 2018-03-09 11:11 | disposition home or self-care (01) ==
LOC: SC 09:12
PROVIDERS: ATTEND Ophthalmology
DX: H25.12 Age-related nuclear cataract, left eye (principal); Z98.41 Cataract extraction status, right eye; M19.90 Unspecified osteoarthritis, unspecified site; I10 Essential (primary) hypertension; E78.00 Pure hypercholesterolemia, unspecified; J44.9 Chronic obstructive pulmonary disease, unspecified; Z79.899 Other long term (current) drug therapy; Z79.51 Long term (current) use of inhaled steroids; Z86.73 Personal history of transient ischemic attack (TIA), and cerebral infarction without residual deficits; Z79.02 Long term (current) use of antithrombotics/antiplatelets; Z79.82 Long term (current) use of aspirin; Z88.8 Allergy status to other drugs, medicaments and biological substances; Z87.891 Personal history of nicotine dependence
CPT/HCPCS: 66984; V2630; J2250; J3490 ×3; A9270; J0171; J3010; J2405; 142

== ENCOUNTER → 2018-07-15 | Outpatient (CLI) | payer MEDICARE, MEDICAID ==
--- NOTE | 2018-07-15 15:24 | WOMENS IMAGING REPORT ---
EXAM DESCRIPTION: BILAT SCREENING MAMMO W/CAD COMPLETED DATE/TIME: 07/15/2018 2:45 pm REASON FOR STUDY: ROUTINE BILATERAL MAMMO Z12.31 Z12.31 ENCNTR SCREEN MAMMOGRAM FOR MALIGNANT NEOPL ASM OF TREY COMPARISON: None. TECHNIQUE: Standard craniocaudal and mediolateral oblique views of each breast recorded using Voluntisa l acquisition. LIMITATIONS: None. FINDINGS: No masses, calcifications or architectural distortion. No areas of suspicion. Read with the assistance of CAD. .[facility] - R2 Cenova Version 1.3 .[facility] - R2 Cenova Version 2.1 .[facility] - R2 Cenova Version 2.4 .[facility] - R2 Cenova Version 2.4 .[facility] - R2 Spa Director/Finance Version 9.2 IMPRESSION: NORMAL MAMMOGRAM. BIRADS 1. BREAST DENSITY: c. The breasts are heterogeneously dense, which may obscure small masses. BIRAD: 1 NEGATIVE RECOMMENDATION: ROUTINE SCREENING COMMENT: The patient has been notified of the results by letter per SA requirements. Additional no tification policies are in place for contacting patient with suspicious or incomplete findings. Quality ID #225: The [employer] recommends an annual screening mammogram for women aged 40 years or over. This facility utilizes a reminder system to ensure that all patients receive reminder letters, and/or direct phone calls for appointments. This includes reminders for routine scr eening mammograms, diagnostic mammograms, or other Breast Imaging Interventions when appropriate. Th is patient will be placed in the appropriate reminder system. The [employer] (ACR) has developed recommendations for screening MRI of the breast s in certain patient populations, to be used in conjunction with mammography. Breast MRI surveillanc e may be appropriate for women with more than 20% lifetime risk of developing breast cancer as deter mined by genetic testing, significant family history of the disease, or history of mantle radiation f or Hodgkins Disease. ACR Practice Guidelines 2008. TECHNICAL DOCUMENTATION: FINDING NUMBER: (1) ASSESSMENT: (1) JOB ID: [id number] [employer]- All Rights Reserved Reading location - IP/workstation name: [email or web address]
== END ==
LOC: WI 14:16
PROVIDERS: ATTEND Internal Medicine
DX: Z12.31 Encounter for screening mammogram for malignant neoplasm of breast (principal)
CPT/HCPCS: 77067

== ENCOUNTER → 2018-08-16 | Outpatient (CLI) | payer MEDICARE, MEDICAID ==
[2018-08-16 15:10] LABS: ANION GAP 10 (5-19); BLOOD UREA NITROGEN 40 mg/dL (7-20); CALCIUM 9.9 mg/dL (8.4-10.2); CARBON DIOXIDE 22 mmol/L (22-30); CHLORIDE 110 mmol/L (98-107); GLUCOSE 96 mg/dL (75-110); POTASSIUM 5.9 mmol/L (3.6-5.0); SODIUM 142.3 mmol/L (137-145)
== END ==
LOC: OD 13:48
PROVIDERS: ATTEND Family Medicine
DX: E87.5 Hyperkalemia (principal)
CPT/HCPCS: 36415; 80048

== ENCOUNTER → 2018-08-18 | Outpatient (CLI) | payer MEDICARE, MEDICAID ==
[2018-08-18 11:08] LABS: ALANINE AMINOTRANSFERASE 53 U/L (9-52); ALKALINE PHOSPHATASE 209 U/L (38-126); ANION GAP 13 (5-19); ASPARTATE AMINO TRANSFERASE 21 U/L (14-36); BILIRUBIN,DIRECT 0.3 mg/dL (0.0-0.4); BILIRUBIN,TOTAL 0.4 mg/dL (0.2-1.3); BLOOD UREA NITROGEN 29 mg/dL (7-20); CALCIUM 9.8 mg/dL (8.4-10.2); CARBON DIOXIDE 16 mmol/L (22-30); CHLORIDE 112 mmol/L (98-107); GLUCOSE 119 mg/dL (75-110); POTASSIUM 4.6 mmol/L (3.6-5.0); SODIUM 140.6 mmol/L (137-145); TOTAL PROTEIN 7.2 g/dL (6.3-8.2)
== END ==
LOC: OD 10:06
PROVIDERS: ATTEND Family Medicine
DX: E87.5 Hyperkalemia (principal); R94.5 Abnormal results of liver function studies
CPT/HCPCS: 36415; 80053

== ENCOUNTER → 2018-08-22 | Outpatient (CLI) | payer MEDICARE, MEDICAID ==
--- NOTE | 2018-08-22 16:02 | RADIOLOGY REPORT (SQ) ---
EXAM DESCRIPTION: U/S THYROID/SFT TISS HD NECK COMPLETED DATE/TIME: 08/22/2018 2:58 pm REASON FOR STUDY: R22.1 LOCALIZED SWELLING, MASS AND LUMP, NECK R22.1 LOCALIZED SWELLING, MASS AND LUMP, NECK I77.9 DISORDER OF ARTERIES AND ARTERIOLES, UNSPECIFIED COMPARISON: None. TECHNIQUE: Dynamic and static butler-scale images acquired of the thyroid gland. Selected additional c olor/power Doppler images recorded. All images stored to PACS. LIMITATIONS: None. FINDINGS: RIGHT LOBE: Normal size. Heterogeneous echotexture. Multiple hypoechoic nodules measurin g approximately 1 cm. LEFT LOBE: Normal size. Heterogeneous echotexture. Heterogenous hypoechoic nodule measuring 6 mm. ISTHMUS: Normal size. Homogeneous echotexture. No cystic or solid masses. OTHER: No other significant finding. IMPRESSION: HETEROGENOUS APPEARANCE OF THE THYROID WITH MULTIPLE BILATERAL SUBCENTIMETER HYPOECHOIC NODULES, MORE NUMEROUS ON THE RIGHT. 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 TECHNICAL DOCUMENTATION: JOB ID: [id number] [employer]- All Rights Reserved Reading location - IP/workstation name: [email or web address]
--- NOTE | 2018-08-22 16:04 | RADIOLOGY REPORT (SQ) ---
EXAM DESCRIPTION: CAROTID DOPPLER COMPLETED DATE/TIME: 08/22/2018 3:57 pm REASON FOR STUDY: NECK SWELLING R22.1 LOCALIZED SWELLING, MASS AND LUMP, NECK I77.9 DISORDER OF AR TERIES AND ARTERIOLES, UNSPECIFIED COMPARISON: 09/06/2017. TECHNIQUE: Grayscale ultrasound, Doppler velocity and spectra, and color Doppler images acquired of the extra-cranial carotid and vertebral arteries. Images stored on PACS. LIMITATIONS: None. FINDINGS: RIGHT CAROTID CCA Velocities: Within normal limits. ICA Velocities Peak systolic 0.73 m/s. End diastolic 0.23 m/s. Proximal ICA/CCA peak systolic ratio 1.08. Scattered heterogenous plaque. LEFT CAROTID CCA Velocities: Within normal limits. ICA Velocities Peak systolic 0.79 m/s. End diastolic 0.37 m/s. Proximal ICA/CCA peak systolic ratio 0.76. Scattered heterogenous plaque. VERTEBRAL ARTERIES: Antegrade flow. Normal waveforms. SUBCLAVIAN ARTERIES: No finding. OTHER: No other significant finding. IMPRESSION: BILATERAL PLAQUE. NO HEMODYNAMICALLY SIGNIFICANT STENOSIS. COMMENT: Quality ID #195: Velocity criteria are extrapolated from the diameter data as defined by t he Society of Radiologists in Ultrasound Consensus Conference. Radiology 2003: 229; 340-346. TECHNICAL DOCUMENTATION: JOB ID: [id number] [employer]- All Rights Reserved Reading location - IP/workstation name: [email or web address]
== END ==
LOC: RAD 14:20
PROVIDERS: ATTEND Family Medicine
DX: I77.9 Disorder of arteries and arterioles, unspecified (principal); R22.1 Localized swelling, mass and lump, neck
CPT/HCPCS: 76536; 93880

== ENCOUNTER → 2018-08-31 | Outpatient (CLI) | payer MEDICARE, MEDICAID ==
--- NOTE | 2018-08-31 13:39 | RADIOLOGY REPORT (SQ) ---
EXAM DESCRIPTION: U/S ABDOMEN COMPLETE W/DOPPLER COMPLETED DATE/TIME: 08/31/2018 9:51 am REASON FOR STUDY: R10.84 GENERALIZED ABDOMINAL PAIN R10.84 GENERALIZED ABDOMINAL PAIN COMPARISON: 06/11/2015. TECHNIQUE: Dynamic and static grayscale images acquired of the abdomen and recorded on PACS. Additio nal selected color Doppler and spectral images recorded. LIMITATIONS: Study limited due to acoustical interference from fat or from air in the bowel. FINDINGS: PANCREAS: Poorly seen secondary to acoustical interference from fat or from air in the bow el. No visualized masses. Duct normal caliber as seen. LIVER: No masses. No dilated ducts. LIVER VASCULATURE: Normal directional flow of the main portal vein and hepatic veins. GALLBLADDER: No stones. Normal wall thickness. No pericholecystic fluid. ULTRASOUND-DETECTED CALL'S SIGN: Negative. INTRAHEPATIC DUCTS AND COMMON DUCT:CBD and intrahepatic ducts normal caliber. No filling defects. INFERIOR VENA CAVA: Normal flow. AORTA: Infrarenal abdominal aortic aneurysm with AP diameter of 3.0 cm. Anterior mural thrombus. RIGHT KIDNEY: Normal size. Normal echogenicity. Cortical cysts, the largest measuring 2.2 cm. No s olid or suspicious masses. No hydronephrosis. No calcifications. LEFT KIDNEY: Normal size. Normal echogenicity. Cortical cysts, the largest measuring 3.9 cm. No so lid or suspicious masses. No hydronephrosis. No calcifications. SPLEEN:Normal size. No solid masses. PERITONEAL AND PLEURAL SPACES: No ascites or effusions. OTHER: No other significant finding. IMPRESSION: 1. INFRARENAL ABDOMINAL AORTIC ANEURYSM WITH AP DIAMETER OF 3.0 CM. PREVIOUS MEASUREMENT IN MAY 2015 WAS 2.7 CM. 2. BILATERAL RENAL CORTICAL CYSTS. 3. NO OTHER SIGNIFICANT FINDING IN THE VISUALIZED ABDOMEN. TECHNICAL DOCUMENTATION: JOB ID: [id number] [employer]- All Rights Reserved Reading location - IP/workstation name: [email or web address]
== END ==
LOC: RAD 08:42
PROVIDERS: ATTEND Family Medicine
DX: R10.84 Generalized abdominal pain (principal); I71.4 Abdominal aortic aneurysm, without rupture; N28.1 Cyst of kidney, acquired
CPT/HCPCS: 76700; 93976

== ENCOUNTER → 2019-02-08 | Outpatient (CLI) | payer MEDICARE, MEDICAID ==
--- NOTE | 2019-02-08 22:06 | XCELERA REPORT ---
[address] [place] [facility] [address] Lower Extremity Venous Evaluation Procedure: Color flow and duplex imaging of the veins of the left lower extremity as well as the right Common Femoral vein. Right Sided Venous Evaluation The right common femoral vein is fully compressible. Spontaneous and phasic flow is present in the right common femoral vein. Left Sided Venous Evaluation Normal vessel filling wall to wall, compression and augmentation as well as Colour flow down to the infrageniculate veins. Interpretation Summary No duplex evidence of DVT or obstruction in the left lower extremity nor in the right Common Femoral vein. Name: PRISCILA MINOR Age: 69 yrs Gender: Female : 1950 Patient Status: Outpatient Patient Location: Study Date: 02/08/2019 02:31 PM Reason For Study: LLE PAIN Ordering Physician: NATALYA MULLEN Performed By: Kim Hannon : NATALYA MULLEN > Tor Coronado
== END ==
LOC: SP 14:00
PROVIDERS: ATTEND Family Medicine
DX: M79.662 Pain in left lower leg (principal)
CPT/HCPCS: 93971

== ENCOUNTER → 2019-04-03 | Outpatient (CLI) | payer MEDICARE, MEDICAID ==
--- NOTE | 2019-04-03 16:28 | RADIOLOGY REPORT (SQ) ---
EXAM DESCRIPTION: CHEST PA/LATERAL COMPLETED DATE/TIME: 04/03/2019 4:17 pm REASON FOR STUDY: COUGH COMPARISON: 09/03/2017 and 06/07/2015 EXAM PARAMETERS: NUMBER OF VIEWS: two views TECHNIQUE: Digital Frontal and Lateral radiographic views of the chest acquired. RADIATION DOSE: NA LIMITATIONS: none FINDINGS: LUNGS AND PLEURA: Mild hyperinflation of the lungs with some flattening of the diaphragms , unchanged findings. No acute pulmonary consolidation. No pneumothorax or pleural effusion. MEDIASTINUM AND HILAR STRUCTURES: No masses or contour abnormalities. HEART AND VASCULAR STRUCTURES: Heart normal size. No evidence for failure. BONES: The osseous structures are stable in appearance. HARDWARE: None in the chest. OTHER: No other significant finding. IMPRESSION: 1. No significant interval changes since the prior studies dated 09/03/2017 and 06/07/2015. No acute findings. TECHNICAL DOCUMENTATION: JOB ID: [id number] [employer]- All Rights Reserved Reading location - IP/workstation name: [email or web address]
== END ==
LOC: OD 15:24
PROVIDERS: ATTEND Internal Medicine
DX: R05 Cough (principal)
CPT/HCPCS: 71046

== ENCOUNTER → 2019-08-30 | Outpatient (CLI) | payer MEDICARE, MEDICAID ==
[2019-08-30 17:31] LABS: ABSOLUTE BASOPHILS # (AUTO) 0.1 10^3/uL (0.0-0.2); ABSOLUTE EOSINOPHILS # (AUTO) 0.2 10^3/uL (0.0-0.6); ABSOLUTE LYMPHOCYTES (AUTO) 1.5 10^3/uL (0.5-4.7); ABSOLUTE MONOCYTES (AUTO) 0.9 10^3/uL (0.1-1.4); ABSOLUTE NEUT (AUTO) 6.8 10^3/uL (1.7-8.2); BASOPHILS % (AUTO) 0.7 % (0-2); EOSINOPHILS % (AUTO) 1.9 % (0-6); HEMATOCRIT 40.2 % (36.0-47.0); HEMOGLOBIN 13.4 g/dL (12.0-15.5); LYMPHOCYTES % (AUTO) 16.3 % (13-45); MEAN CORPUSCULAR HEMOGLOBIN 29.8 pg (27.0-33.4); MEAN CORPUSCULAR HGB CONC 33.2 g/dL (32.0-36.0); MEAN CORPUSCULAR VOLUME 90 fl (80-97); MONOCYTES % (AUTO) 9.5 % (3-13); PLATELET COUNT 278 10^3/uL (150-450); RED BLOOD COUNT 4.48 10^6/uL (3.72-5.28); SEGMENTED NEUTROPHILS % (AUTO) 71.6 % (42-78); TOTAL CELLS COUNTED % (AUTO) 100 %; WHITE BLOOD COUNT 9.5 10^3/uL (4.0-10.5)
[2019-08-30 17:44] LABS: ANION GAP 9 (5-19); BLOOD UREA NITROGEN 22 mg/dL (7-20); CALCIUM 9.6 mg/dL (8.4-10.2); CARBON DIOXIDE 24 mmol/L (22-30); CHLORIDE 111 mmol/L (98-107); GLUCOSE 100 mg/dL (75-110); POTASSIUM 4.9 mmol/L (3.6-5.0); URIC ACID 6.9 mg/dL (2.5-7.5)
== END ==
LOC: OD 16:07
PROVIDERS: ATTEND Family Medicine
DX: I25.810 Atherosclerosis of coronary artery bypass graft(s) without angina pectoris (principal); G62.9 Polyneuropathy, unspecified; M79.672 Pain in left foot
CPT/HCPCS: 36415; 80048; 82607; 84550; 85025

== ENCOUNTER → 2019-11-24 | Outpatient (CLI) | payer MEDICARE, MEDICAID ==
--- NOTE | 2019-11-24 16:06 | RADIOLOGY REPORT (SQ) ---
EXAM DESCRIPTION: CT SOFT TISSUE NECK WITHOUT IMAGES COMPLETED DATE/TIME: 11/24/2019 3:10 pm REASON FOR STUDY: CERVICAL LYMPHADENOPATHY (R59.0) R59.0 LOCALIZED ENLARGED LYMPH NODES COMPARISON: None. TECHNIQUE: Noncontrast scanning from skull base through lung apices with review of bone, soft tissue and lung windows. Reconstructed coronal and sagittal MPR images reviewed. All images stored on PAC S. Region of interest is marked with a skin surface BB. All CT scanners at this facility use dose modulation, iterative reconstruction, and/or weight based d osing when appropriate to reduce radiation dose to as low as reasonably achievable (ALARA). [facility]: Dose Right [facility]: CareDose [facility]: Dose Right [facility]: Teradose 4D [facility]: Smart Technologies RADIATION DOSE: CT Rad equipment meets quality standard of care and radiation dose reduction techniq ues were employed. CTDIvol: 7.1 mGy. DLP: 233 mGy-cm. mGy. LIMITATIONS: Lack of IV contrast somewhat limits. FINDINGS: SKULL BASE: Intact. MAJOR SALIVARY GLANDS: No solid or cystic masses. No inflammatory changes. LYMPHADENOPATHY: No enlarged nodes are detected. MUCOSAL MASSES OR ASYMMETRY: No mucosal masses or asymmetry. LARYNX/CORDS: No abnormal findings. LUNG APICES: Apical emphysema. BONES: Postoperative and degenerative changes. THYROID: Slight right lobe nodularity. PARANASAL SINUSES: Clear. OTHER: There is thickening of the left strap musculature at the level of the indicated region of clin ical concern. This is nonspecific. This does not appear to represent an abnormal lymph node. IMPRESSION: 1. Asymmetric left strap muscle fullness in the region of interest. Potential mass here, nonspecific . This needs further clinical followup. TECHNICAL DOCUMENTATION: JOB ID: [id number] Quality ID # 436: Final reports with documentation of one or more dose reduction techniques (e.g., Au tomated exposure control, adjustment of the mA and/or kV according to patient size, use of iterative reconstruction technique) 2010 [employer]- All Rights Reserved Reading location - IP/workstation name: [email or web address]
== END ==
LOC: RAD 14:18
PROVIDERS: ATTEND Family Medicine
DX: R59.0 Localized enlarged lymph nodes (principal)
CPT/HCPCS: 70490

== ENCOUNTER → 2020-02-02 | Day surgery (SDC) | payer MEDICARE, MEDICAID ==
--- NOTE | 2020-02-08 09:42 | RADIOLOGY REPORT (SQ) ---
EXAM DESCRIPTION: FNA BX W/ US GDN 1ST LES IMAGES COMPLETED DATE/TIME: 02/02/2020 3:54 pm REASON FOR STUDY: LOCALIZED SWELLING, MASS AND LUMP, NECK R22.1 LOCALIZED SWELLING, MASS AND LUMP, NECK COMPARISON: None. TECHNIQUE: The procedure was discussed with the patient and written informed consent obtained. A ti meout was performed to confirm the procedure and patient's identity. The skin of the neck was preppe d and draped in sterile fashion and 1% lidocaine administered for local anesthesia. Under sonographic guidance, fine needle aspiration biopsy was per formed of the mass in the right lobe of the thyroid. 5 separate aspirations were performed. Pathology present during tissue sampling. Hemostasis was obt ained with direct manual compression. There were no immediate complications. LIMITATIONS: None. FINDINGS: PATHOLOGY: Pending. IMPRESSION: ULTRASOUND-GUIDED BIOPSY PERFORMED OF A MASS IN THE RIGHT LOBE OF THE THYROID. PATHOLOG Y PENDING AT THE TIME OF DICTATION. COMMENT: No abnormality could be identified in the left thyroid cartilage region. Patient medication list reviewed: Yes- Quality ID# 130:Eligible professional attests to documenting i n the medical record they obtained, updated, or reviewed the patient's current medications. TECHNICAL DOCUMENTATION: JOB ID: [id number] 2010 [employer]- All Rights Reserved Reading location - IP/workstation name: [email or web address]
== END ==
LOC: RAD 13:39
PROVIDERS: ATTEND Otolaryngology
DX: R22.1 Localized swelling, mass and lump, neck (principal)
CPT/HCPCS: 10005; 88173

== ENCOUNTER → 2020-03-27 | Day surgery (SDC) | payer MEDICARE, MEDICAID ==
[~2020-03-27] MED LIST changes: +DIAZEPAM 5 MG TABLET ONE; -KETOROLAC TROMETHAMINE 0.45% 4 DROP/0.4 ML DROPERETTE OS PRN
--- NOTE | 2020-03-27 14:35 | RADIOLOGY REPORT (SQ) ---
EXAM DESCRIPTION: U/S BIOPSY THYROID IMAGES COMPLETED DATE/TIME: 03/27/2020 1:48 pm REASON FOR STUDY: R22.1 LOCALIZED SWELLING, MASS AND LUMP, NECK E04.1 NONTOXIC SINGLE THYROID R22.1 LOCALIZED SWELLING, MASS AND LUMP, NECK E04.1 NONTOXIC SINGLE THYROID NODULE COMPARISON: CT dated 11/24/2019 TECHNIQUE: The procedure was discussed with the patient and written informed consent obtained. A ti meout was performed to confirm the procedure and patient's identity. The skin of the neck was preppe d and draped in sterile fashion and 5 mL of 1% lidocaine administered for local anesthesia. Under sonographic guidance, fine needle aspiration biopsy was per formed of the mass in the left aspect of the neck. The mass was clearly separate from the thyroid gl and itself. 4 passes were made. Cytotec confirmed adequate tissue. At that point the nodule in the right lobe of the thyroid gland was addressed. The neck was sterilel y prepped and draped. 5 mL of 1% lidocaine was used for local anesthesia. Under sonographic guidanc e fine-needle aspiration was performed of the thyroid nodule. The Cytotec again confirmed adequate t issue. One separate aspirations were performed. Hemostasis was obtained with direct manual compression. Th ere were no immediate complications. LIMITATIONS: None. FINDINGS: PATHOLOGY: Pending. IMPRESSION: Technically successful biopsy of mass in the left aspect of the neck just anterior and l ateral to the trachea but clearly separate from thyroid gland. Technically successful biopsy of the nodule in right lobe of the thyroid gland. COMMENT: Patient medication list reviewed: Yes- Quality ID# [id number]:Eligible professional attests to doc umenting in the medical record they obtained, updated, or reviewed the patient's current medications. TECHNICAL DOCUMENTATION: JOB ID: [id number] 2010 [employer]- All Rights Reserved Reading location - IP/workstation name: [email or web address]
== END ==
LOC: RAD 11:45
PROVIDERS: ATTEND Otolaryngology
DX: R22.1 Localized swelling, mass and lump, neck (principal); E04.1 Nontoxic single thyroid nodule
CPT/HCPCS: 88173 ×2; 10005; A9270

== ENCOUNTER → 2020-04-11 | Outpatient (CLI) | payer MEDICARE, MEDICAID ==
--- NOTE | 2020-04-11 12:42 | RADIOLOGY REPORT (SQ) ---
EXAM DESCRIPTION: LUMBAR SPINE COMPLETE IMAGES COMPLETED DATE/TIME: 04/11/2020 11:36 am REASON FOR STUDY: RADICULOPATHY, SITE UNSPECIFIED M54.10 RADICULOPATHY, SITE UNSPECIFIED COMPARISON: None. NUMBER OF VIEWS: Five views including obliques. TECHNIQUE: AP, lateral, oblique, and sacral radiographic images acquired of the lumbar spine. LIMITATIONS: None. FINDINGS: MINERALIZATION: Normal. SEGMENTATION: Normal. No transitional anatomy. ALIGNMENT: Mild scoliosis. VERTEBRAE: Maintained height. No fracture or worrisome bone lesion. DISCS: Preserved height. No significant osteophytes or end plate irregularity. POSTERIOR ELEMENTS: Pedicles and facets are intact. No pars defect or posterior arch defects. HARDWARE: None in the spine. PARASPINAL SOFT TISSUES: Normal. PELVIS: Intact as visualized. No fractures or worrisome bone lesions. SI joints intact. OTHER: There appears be mild aneurysm dilatation of the distal abdominal aorta with maximum diameter of 32.5 mm. IMPRESSION: Scoliosis. No acute findings in the lumbar spine. Aortic aneurysm. COMMENT: AAA Size: Follow-up Recommendation 3.0-3.4 cm Recommended followup every 3 years. *Based upon the ACR White Paper in the J Am Brittany Radiol 2013;10 (10):789-794. *For aortas of maximum diameter of 2.6-2.9 cm meeting the criteria for AAA (?1.5 x proximal normal se gment) TECHNICAL DOCUMENTATION: JOB ID: [id number] 2010 [employer]- All Rights Reserved Reading location - IP/workstation name: [email or web address]
--- OUTSIDE RECORDS SUMMARY | 2020-04-12 15:22 | XMS REPORT ---
:1950 [facility] [place] [address] [place] [address] Care Team Providers Name Role Phone Unavailable Unavailable Unavailable Allergies, Adverse Reactions, Alerts This patient has no known allergies or adverse reactions. Medications This patient has no known medications. Problems This patient has no known problems. Procedures This patient has no known procedures. Results This patient has no known results. Social History This patient has no known social history. Vital Signs This patient has no known vital signs.
== END ==
LOC: OD 11:18
PROVIDERS: ATTEND Family Medicine
DX: M41.86 Other forms of scoliosis, lumbar region (principal); I71.4 Abdominal aortic aneurysm, without rupture; M54.10 Radiculopathy, site unspecified
CPT/HCPCS: 72110

== ENCOUNTER → 2020-04-16 | Outpatient (CLI) | payer MEDICARE, MEDICAID | LOC: RAD 11:42 | PROVIDERS: ATTEND Otolaryngology | DX: R22.1 Localized swelling, mass and lump, neck (principal) | CPT/HCPCS: 70540 ==

== ENCOUNTER → 2020-04-29 | Outpatient (CLI) | payer MEDICARE, MEDICAID ==
--- NOTE | 2020-04-30 09:58 | RADIOLOGY REPORT (SQ) ---
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 MRI soft tissue neck 04/16/2020. RADIONUCLIDE AND DOSE: 14.6 mCi technetium 99 pertechnetate intravenous. ADDITIONAL DRUGS AND DOSES: None. TECHNIQUE: Planar images of the thyroid gland w pin hole collimator. SPECT images. LIMITATIONS: None. FINDINGS: There is normal distribution of radiopharmaceutical. No ectopic activity is identified. IMPRESSION: Normal. No ectopic thyroid tissue identified. TECHNICAL DOCUMENTATION: JOB ID: [id number] 2010 [employer]- All Rights Reserved Reading location - IP/workstation name: [email or web address]
--- NOTE | 2020-04-30 09:58 | RADIOLOGY REPORT (SQ) ---
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 MRI soft tissue neck 04/16/2020. RADIONUCLIDE AND DOSE: 14.6 mCi technetium 99 pertechnetate intravenous. ADDITIONAL DRUGS AND DOSES: None. TECHNIQUE: Planar images of the thyroid gland w pin hole collimator. SPECT images. LIMITATIONS: None. FINDINGS: There is normal distribution of radiopharmaceutical. No ectopic activity is identified. IMPRESSION: Normal. No ectopic thyroid tissue identified. TECHNICAL DOCUMENTATION: JOB ID: [id number] 2010 [employer]- All Rights Reserved Reading location - IP/workstation name: [email or web address]
== END ==
LOC: RAD 13:31
PROVIDERS: ATTEND Otolaryngology
DX: E04.1 Nontoxic single thyroid nodule (principal)
CPT/HCPCS: 78013; 78803; A9512; Q9969